=== PATIENT | female | born 2000 | race Caucasian/White ===

== ENCOUNTER 2024-11-23 17:59 | Emergency (ER) | payer BC, SELFPAY ==
[2024-11-23 18:17] VITALS: BP 168/111; PULSE 78; TEMP 36.7; O2SAT 100; BMI 54.9
--- NOTE | 2024-11-23 18:36 | ED_ITS ---
HPI HPI - General Adult General Stated complaint: EAR PAIN, COUGH, FEVER Time Seen by Provider: 11/23/24 18:03 Source: patient Mode of arrival: walk-in Limitations: no limitations History of Present Illness HPI narrative: The patient presented to us with almost 5 days history of upper respiratory tract infection symptoms of coughing and congestion, there was no shortness of breath, but over the last 3 days she started having some ear pain only in the left ear She also have some subjective fever at home Related Data Home Medications ?Medication ?Instructions ?Recorded ?Confirmed multivitamin (Daily Multi-Vitamin 1 tab PO DAILY 11/23/24 11/23/24 tablet) Previous Rx's ?Medication ?Instructions ?Recorded azithromycin 250 mg tablet See Rx Instructions PO .COMPLEX #6 11/23/24 (Zithromax Z-Bonifacio) tabs guaifenesin 600 mg tablet, 600 mg PO Q12H PRN congestion #14 11/23/24 extended release 12 hr (Mucinex) tabs Allergies Allergy/AdvReac Type Severity Reaction Status Date / Time No Known Drug Allergies Allergy Verified 11/23/24 18:26 Opioid HPI Opioid Management Most Recent Opioid Data: No Data to Display Review of Systems ROS Status of ROS 10 or more systems reviewed and unremark able except as noted in history and below [facility] Surgical History (Updated 11/23/24 @ 18:28 by Brionna Kathleen) Hx of tonsillectomy ?Z90.89 - Acquired absence of other organs (ICD-10) Social History Little interest or pleasure in doing things: not at all Feeling down, depressed, or hopeless: not at all Exam Narrative Exam Narrative: Nurses notes and vital signs reviewed and patient is not hypoxic. General: Well-appearing and in no apparent distress. Skin: Warm, dry, no pallor noted. No rash. Head: Normocephalic, atraumatic. Neck: Supple, non-tender. Eye: Pupils are equal, round and EOMI. No scleral icterus. Ears, Nose, Mouth, and Throat: The patient have a significant left ear tympanic membrane bulging with serous fluid behind it in the left side, right ear examination was benign, oral mucosa is moist, no posterior oropharynx erythema, uvula is mid-line Cardiovascular: Regular Rate and Rhythm without murmur, gallop or rub. Respiratory: No accessory muscle use or respiratory distress. Lungs are clear to auscultation, no wheezing, rales or rhonchi Chest Wall: no tenderness Back: No midline thoracic or lumbar vertebral tenderness. No CVA tenderness Musculoskeletal: normal ROM, no calf or popliteal tenderness, no lower extremity edema/swelling GI: Abdomen is soft, non-distended. Normal bowel sounds. No masses appreciated. No tenderness to palpation. No rebound, guarding, or rigidity noted. Neurological: A&O x4. No cranial nerve dysfunction observed. No truncal ataxia. Moves all extremities. Sensation intact. Psychiatric: Cooperative and interactive. Normal mood and affect. Constitutional Vital Signs, click to edit/add: Last Vital Signs Temp 98.1 F 11/23/24 18:17 Pulse 78 11/23/24 18:17 Resp 16 11/23/24 18:17 BP 168/111 H 11/23/24 18:17 Pulse Ox 100 11/23/24 18:17 O2 Del Method Room Air 11/23/24 18:17 Course Vital Signs Vital signs: Vital Signs Temperature 98.1 F 11/23/24 18:17 Pulse Rate 78 11/23/24 18:17 Respiratory Rate 16 11/23/24 18:17 Blood Pressure 168/111 H 11/23/24 18:17 Pulse Oximetry 100 11/23/24 18:17 Oxygen Delivery Method Room Air 11/23/24 18:17 Temperature 98.1 F 11/23/24 18:17 Pulse Rate 78 11/23/24 18:17 Respiratory Rate 16 11/23/24 18:17 Blood Pressure 168/111 H 11/23/24 18:17 Pulse Oximetry 100 11/23/24 18:17 Oxygen Delivery Method Room Air 11/23/24 18:17 Medical Decision Making [facility] Narrative Medical decision making narrative: The patient left ear pain mostly secondary to otitis media as per clinical exam Patient started azithromycin in addition to Mucinex The patient is to follow up with primary care physician in next 2-3 days or to return to the emergency department should any of the signs or symptoms worsen or new symptoms develop. The patient agrees with the following Diagnosis and Treatment plan and the patient will be discharged home. Discharge Plan Discharge Clinical Impression: Otitis media Patient Disposition: Home, Self-Care Time of Disposition Decision: 18:36 Condition: Good Prescriptions / Home Meds: New azithromycin [Zithromax Z-Bonifacio] 250 mg tablet See Rx Instructions .ROUTE .COMPLEX Qty: 6 0RF Rx Instructions: For 250 mg dose pack: take 500 mg today (day 1), then 250 mg for 4 days (days 2-5) guaifenesin [Mucinex] 600 mg tablet extended release 12hr 600 mg PO Q12H PRN (Reason: congestion) Qty: 14 0RF No Action multivitamin [Daily Multi-Vitamin] Tablet 1 tab PO DAILY Print Language: Yoruba Instructions: Ear Infection (ED) Referrals: MOIZ DIAZ [Primary Care Provider] - 1 week
== END 2024-11-23 19:24 | disposition home or self-care (01) ==
PROVIDERS: Emergency Provider Emergency Medicine; PCP Family Medicine
DX: H66.92 Otitis media, unspecified, left ear (principal)
CPT/HCPCS: 99283

== ENCOUNTER 2025-11-19 14:13 | Emergency (ER) | payer BC, SELFPAY ==
--- OUTSIDE RECORDS SUMMARY | 2025-11-17 07:49 | XMS_ITS | Continuity of Care Document ---
Author Organization [facility] Address [address] [place] [address] Phone Care Team Providers Care Neighborhood Aide Name Role Phone Case DDS, Rafaela Unavailable Unavailable Allergies, Adverse Reactions, Alerts Substance Reaction Status Criticality No Known Allergies Active No Inform ation Medications Medication Instructions Dosage Effective Dates (start - stop) Status Comments promethazine 25 mg tablet take 1 tablet by oral route every 4 - 6 hours as needed 25 MG - No Longer Active Prenate DHA 28 mg iron-1 mg-300 mg capsule take 1 capsule by oral route every day - No Longer Active may substitute per insurance Procedures Procedure Date Panoramic Film Bitewig-single Film Limited Oral Eval Oral Hygiene Instruction URINE TEST OFFICE/OUTPATIENT VISIT, EST OFFICE/OUTPATIENT VISIT, NEW URINE TEST URINALYSIS NONAUTO W/O SCOPE OFFICE/OUTPATIENT VISIT, EST Imm Admin Through 18 Yrs Of Age 013 HEP A VACC, PED/ADOL, 2 DOSE Imm Admin Through 18 Yrs Of Age 013 H PAPILLOMA VACC 3 DOSE IM OFFICE/OUTPATIENT VISIT, EST FLU VACCINE, 3 YRS & >, IM OFFICE/OUTPATIENT VISIT, EST H PAPILLOMA VACC 3 DOSE IM FLU VACCINE, 3 YRS & >, IM OFFICE/OUTPATIENT VISIT, EST OFFICE/OUTPATIENT VISIT, EST H PAPILLOMA VACC 3 DOSE IM HEP A VACC, PED/ADOL, 2 DOSE Menveo TDAP VACCINE >7 IM FLU VACCINE, 3 YRS & >, IM Advance Directives Directive Yes / No Effective Date File Name No Information Encounters Encounter Description Practice Location Reason(s) For Visit Diagnoses Date Provider Providers Copied on Encounter [facility], [address] [place] [address], [id number], [place] tel:[phone] Dental Clinic de (chief complaint) Body mass index [BMI] 50.0-59.9, adultEncounter for screening for dental disorders 5 Case DDS Rafaela. [address] [place] [address], [id number] , [place]. tel: [phone] OFFICE/OUTPAT IENT VISIT, [facility], [address] [place] [address], [id number], [place] tel:[phone] [facility] Test (chief complaint) Positive testEncounter for supervision of normal 1st , 1st trimester 201 9 Jignesh [facility] Chyna. [address] [place] [address], [id number] , [place]. tel:[phone] OFFICE/OUTPAT IENT VISIT, [facility], [address] [place] [address], [id number], [place] tel:[phone] [facility] No Information 0 3 Visci DO Aurelio. [address], [place], [id number] , [place]. tel:[phone] OFFICE/OUTPAT IENT VISIT, [facility], [address] [place] [address], [id number], [place] tel:[phone] [facility] Influenza Vaccine 2 Taiwo Delgado. [address], [place], [id number] , [place]. tel:[phone] OFFICE/OUTPAT IENT VISIT, EST [facility], [address], [place], [id number], [place] tel:[phone] [facility] Need for prophylactic vaccination and inoculation against other specified single bacterial diseaseNeed for prophylactic vaccination with combined diphtheria-tetanus- pertussis (DTP) (DTaP) vaccineNeed for prophylactic vaccination and inoculation against viralhepatitisNeed for prophylactic vaccination and inoculation, other viral diseases 2 Taiwo Delgado. [address] [place], [place], [id number] , [place]. tel:[phone] [facility], [address], [place], [id number], [place] tel:[phone] [facility] No Information 1 Taiwo Delgado. [address], [place], [id number] , [place]. tel: [phone] Family History Family Member Type Diagnosis Age At Onset No Information Immunizations Vaccine Date Status Comments HPV administered Source: New Imm unization Record Hep A (ped/adol, 2 dose) administered Heather rce: New Immunization Record Flu (split) (3 yrs or older) administered Source: New Immunization Record HPV administered Source: New Imm unization Record HPV administered Source: New Imm unization Record Hep A (ped/adol, 2 dose) administered Heather rce: New Immunization Record Tdap administered Source: New Imm unization Record MCV4 (11-55 yrs) administered Source: New Immunization Record Payers Payer name Insurance type Covered constitution party ID Bobby mancia(s) D [employer] [place] CI [id number] D [facility] Claims CI [id number] Social History Type Description Quantity Date Captured Comments Alcohol Use Details Unknown Caffeine Use Details Unknown Tobacco Use Status Current non-smoker Smoking Status Never smoker Non-Smoking Tobacco Use Details : No Details Available : No Details Available [id number] SexFemaleSexual OrientationStraight or heterosexualGender [id number] Vital Signs Date / Time: Height Weight BMI Pulse Rate Blood Pressure Temperature Respiratory Rate Body Surface Area Head Circumference Head Circ. Percentile Wt./Roman. Percentile BMI percentile Pulse Ox Inhaled Ox 12:56 PM 66.00 in 145.603 kg (321.00 lbs) 51.8 1 kg/m eter (2) 95 /min 157/94 mm[Hg] 98.20 F 2.60 meter(2) Chief Complaint And Reason For Visit From encounter dated '11/17/2025 12:49'. de (chief complaint) Reason For Referral Reason For Referral No Information Plan Of Treatment Date Type Action Status Goal Tdap due Goal Unhealthy drug use screening . Due on due Goal HPV. Due on due Goal Depression screening. Due on due Goal PRAPARE ASSESSMENT. Due on D due Goal Influenza Vaccine. Due on due Goal RLP. Due on due Goal Tdap Vaccine. Due on 2024 due Goal PAP. Due on due Goal Hepatitis C screening. Due o n due Goal Dietary management education , guidance, and counseling completed Goal Tdap due Goal RLP. Due on due Goal Depression screening. Due on due Goal Influenza Vaccine. Due on No due Goal Influenza Vaccine. Due on No due Goal TD Vaccine. Due on 12 due Goal HPV (3rd). Due on 3 due Goal HPV (2nd). Due on 2 due Goal HPV (1st). Due on 2 due History Of Present Illness Encounter Date Complaint History Of Prese nt Illness de Test Functional Status Date Functional Assessmen t No Information Instructions Date Instruction Additional Infor mation Dietary management e ducation, guidance, and counseling Related to Body mass index [BMI] 50.0-59.9, adult Assessments Type Assessment Date assessment Body mass index [BMI] 50.0-59.9, adult Patient Care Teams Name Effective Dates (start - stop) Status Members No Information
[2025-11-19 14:16] VITALS: BP 170/104; PULSE 91; TEMP 36.9; O2SAT 98; BMI 56.6
--- OUTSIDE RECORDS SUMMARY | 2025-11-19 14:41 | XMS_ITS | CCD ---
Author Organization [facility] Inform ion Partnership [facility] Care Team Providers Care Ceramic Coater Name Role Phone DO Moiz Diaz Primary Care Provider MD Lelo Patrick Attending Provider MARKER ., DR BERNSTEIN Attending Unavailable MARKER ., DR BERNSTEIN Consulting Unavailable MARKER ., DR BERNSTEIN Admitting Unavailable EMILY, DR ROCKWELL Primary Care Unavailable MOIZ DIAZ Primary Care Physician [phone] Kelly HAN Admitting Unavailable Maurilio BRAND Attending Unavailable Moiz Diaz Attending Unavailable Moiz Diaz Primary Care Unavailable Moiz Diaz Admitting Unavailable Lelo Patrick Admitting Unavailable Moiz Diaz Primary Care Unavailable Lelo Patrick Attending Unavailable Unavailable Unavailable Unavailable Medications Current Medications MedicationDrug Class(es)DatesSig (Normalized)Sig (Original)docusate sodium 50 mg oral capsule (2 sources)Start: 09-94-3826nvxv 50 mg by mouth once dailyDocusate Sodium Active 50 MG Oral Daily November 11, 2019 9:38pmferrous sulfate 325 mg oral tablet (2 sources)Start: 38-74-5762inpc 325 mg by mouth once dailyFerrous Sulfate Active 325 MG Oral Daily November 11, 2019 9:38pmibuprofen 800 mg oral tablet (2 sources)Nonsteroidal Anti-inflammatory DrugStart: 23-53-0395efrl 800 mg by mouth every six hoursIbuprofen Active 800 MG Oral Q6H November 11, 2019 9:38pmMultivitamin preparation (1 source)Start: 98-32-4459iyah 1 tablet by mouth once dailymultivitamin 1 tab, Oral, Daily, Prophylaxis Start Date: 04/05/23 Status: OrderedtraMADol hydrochloride 50 mg oral tablet (2 sources)Opioid AgonistStart: 76-27-0722Qauykqys Active 50 MG Oral every 6 to 8 hours 12 3 November 11, 2019 9:38pm Completed/Discontinued Medications MedicationDrug Class(es)DatesSig (Normalized)Sig (Original) Control (1 source)Start: 03-28-2019 End: 30-86-0644likv 1 tablet by mouth once dailyBirth Control Discontinued 1 TAB PO Daily 2019 11:00pm November 13, 2019 11:10ammetoprolol 1 mg/mL Inj (1 source)Start: 04-05-2023 End: 52-70-8901bmnesu 2.5 mg intravenously oncemetoprolol 1 mg/mL Inj 2.5 mg = 2.5 mL, Injection, IV Push, Once, Stop date 04/05/23 1:14:00 EDT, STAT, Start date 04/05/23 1:14:00 EDT, 04/05/23 1:14:00 EDT Start Date: 04/05/23 Stop Date: 04/05/23 Status: Completed Problems Problem ClassificationProblemDateDocumented DateEpisodic/ChronicAbdominal pain (1 source)Abdominal pain; Translations: [Unspecified abdominal pain]Onset: 63-39-2287ZycwikvtYpqlf and unspecified renal failure (1 source)Acute renal failure syndrome; Translations: [Acute kidney failure, unspecified]Onset: 12-91-5419QzxoadzwVgabxfz dysrhythmias (2 sources)Tachycardia, unspecified; Translations: [Tachyarrhythmia ]Onset: 81-30-4405LbtyracdBtlzv of unknown origin (1 source)Fever; Translations: [Fever, unspecified]Onset: 86-88-7552Lpvjqdyo Fluid and electrolyte disorders (1 source)Dehydration; Translations: [Dehydration]Onset: 53-15-1569Clhpvrqb Nausea and vomiting (4 sources)Nausea with vomiting, unspecified; Translations: [NAUSEA WITH VOMITING UNSPECIFIED]Onset: 97-63-3316CebrifppDvcha aftercare (1 source)Long-term current use of drug therapy; Translations: [Other longwall shearer operator (current) drug therapy]Onset: 42-15-8389GnvwtlqkFsewt gastrointestinal disorders (1 source)Diarrhea, unspecified; Translations: [DIARRHEA UNSPECIFIED]Onset: 80-63-9844RfnoskwjFhvjw gastrointestinal disorders (1 source)Diarrhea; Translations: [Diarrhea, unspecified]Onset: 04-05-2023 EpisodicOther nutritional; endocrine; and metabolic disorders (1 source)Obesity, unspecified; Translations: [OBESITY UNSPECIFIED]Onset: 50-55-7137EtxrpgaZnnrb nutritional; endocrine; and metabolic disorders (1 source)Body mass index (BMI) 50.0-59.9, adult; Translations: [BODY MASS INDEX BMI 50.0-59.9 ADULT]Onset: 32-12-8579GjfmgenTfmbe nutritional; endocrine; and metabolic disorders (1 source)Obesity; Translations: [Obesity, unspecified]Onset: 65-63-8801Kdyqhdd Other and delivery including normal (2 sources); Translations: [Encounter for supervision of normal , unspecified, unspecified trimester]42-40-4726IdxjotwhFhjlu upper respiratory infections (1 source)Streptococcal pharyngitis; Translations: [STREPTOCOCCAL PHARYNGITIS] Onset: 98-28-1963BihgvarkTrdcwuxq codes; unclassified (2 sources)Gestation period, 39 weeks; Translations: [39 weeks gestation of ]56-48-3215DjclctfwIwwbderk codes; unclassified (1 source)H/O: section; Translations: [Status post primary low transverse section]EpisodicUnclassified (1 source)CONTACT W/AND (SUSP) EXPOS COVID-19; Translations: [CONTACT W/AND (SUSP) EXPOS COVID-19]Onset: 38-62-2442Gvqqnuczvgvl (1 source)Encounter for screening for cardiovascular disorders; Translations: [Encounter for screening for cardiovascular disorders]Onset: 04-30-2023 Unclassified (1 source)Other specified disorders of adrenal gland; Translations: [Other specified disorders of adrenal gland]Onset: 10-09-2022 Results Test NameValueInterpretationReference RangeFacilityComplete Blood Count Auto Diffon 42-38-3181Dwndkkxnd (Bld) [#/Vol]0.1 10*3/uLNormal0.0-0.2FAultman Orrville HospitalComment on above:Order Comment: Reason for Exam Screening for cardiovascular conditionResult Comment: PERFORMED BY: [place] [address] PATHOLOGIST BUS DRIVER SUPERVISOR [employer] JOSEPH M.D.Performed By: #### TSH3, LIPID, CBC, CMP #### [facility] [address] [place] [address] USABasophils/100 WBC (Bld)0.7 %Normal.[facility] HospitalComment on above:Order Comment: Reason for Exam Screening for cardiovascular conditionPerformed By: #### TSH3, LIPID, CBC, CMP #### [facility] [address] [place] [address] USAEosinophils (Bld) [#/Vol]0.1 10*3/uLNormal0.0-0.45 [facility] HospitalComment on above:Order Comment: Reason for Exam Screening for cardiovascular conditionPerformed By: #### TSH3, LIPID, CBC, CMP #### [facility] [address] [place] [address] USAEosinophils/100 WBC (Bld)1.5 %Normal.[facility] HospitalComment on above:Order Comment: Reason for Exam Screening for cardiovascular conditionPerformed By: #### TSH3, LIPID, CBC, CMP #### [place] [address] USAErythrocyte distribution width (RBC) [Ratio]13.9 %Normal 11.9-15.3FAultman Orrville HospitalComment on above:Order Comment: Reason for Exam Screening for cardiovascular conditionPerformed By: #### TSH3, LIPID, CBC, CMP #### [facility] [address] [place] [address] USAHematocrit (Bld) [Volume fraction]40.1 %Gcmhtz50.0-46.4 [facility] HospitalComment on above:Order Comment: Reason for Exam Screening for cardiovascular conditionPerformed By: #### TSH3, LIPID, CBC, CMP #### [place] [address] USAHemoglobin (Bld) [Mass/Vol]13.8 g/qGEjxthm65.8-15.4 [facility] HospitalComment on above:Order Comment: Reason for Exam Screening for cardiovascular conditionPerformed By: #### TSH3, LIPID, CBC, CMP #### [facility] [address] [place] [address] USALymphocytes (Bld) [#/Vol]2.3 10*3/uLNormal1.00-4.8 [facility] HospitalCommclaren [place] on above:Order Comment: Reason for Exam Screening for cardiovascular conditionPerformed By: #### TSH3, LIPID, CBC, CMP #### [facility] [address] [place] [address] USALymphocytes/100 WBC (Bld)26.9 %Normal.[facility] HospitalCommclaren [facility] [place] on above:Order Comment: Reason for Exam Screening for cardiovascular conditionPerformed By: #### TSH3, LIPID, CBC, CMP #### [facility] [address] [place] [address] USAMCH (RBC) [Entitic mass]28.3 izBmnwpf84.7-34.3FAultman Orrville HospitalComment on above:Order Comment: Reason for Exam Screening for cardiovascular conditionPerformed By: #### TSH3, LIPID, CBC, CMP #### [facility] [address] [place] [address] USAMCV (RBC) [Entitic vol]82.4 lSBvbjyr58-236QwaefkvobFort Hamilton HospitalComment on above:Order Comment: Reason for Exam Screening for cardiovascular conditionPerformed By: #### TSH3, LIPID, CBC, CMP #### [facility] [address] [place] [address] USAMean Corpuscular HGB Conc34.3 g/sVNxxecb08.0-35.0[facility] HospitalComment on above:Order Comment: Reason for Exam Screening for cardiovascular conditionPerformed By: #### TSH3, LIPID, CBC, CMP #### [facility] [address] [place] [address] USAMonocytes (Bld) [#/Vol]0.4 10*3/uLNormal0.0-0.8[facility] HospitalComment on above:Order Comment: Reason for Exam Screening for cardiovascular conditionPerformed By: #### TSH3, LIPID, CBC, CMP #### [facility] [address] [place] [address] USAMonocytes/100 WBC (Bld)5.0 %Normal.[facility] HospitalCommclaren [facility] [place] on above:Order Comment: Reason for Exam Screening for cardiovascular conditionPerformed By: #### TSH3, LIPID, CBC, CMP #### [facility] [address] [place] [address] USANeutrophils (Bld) [#/Vol]5.7 10*3/uLNormal1.8-7.7FAultman Orrville HospitalComment on above:Order Comment: Reason for Exam Screening for cardiovascular conditionPerformed By: #### TSH3, LIPID, CBC, CMP #### [facility] [address] [place] [address] USANeutrophils/100 WBC (Bld)65.9 %Normal.[facility] HospitalCommclaren [facility] [place] on above:Order Comment: Reason for Exam Screening for cardiovascular conditionPerformed By: #### TSH3, LIPID, CBC, CMP #### [facility] [address] [place] [address] USANRBC%0.0 /100{WBC}Normal0-0.5FAultman Orrville HospitalCommclaren northern [place] on above:Order Comment: Reason for Exam Screening for cardiovascular conditionPerformed By: #### TSH3, LIPID, CBC, CMP #### [facility] [address] [place] [address] USAPlatelet mean volume (Bld) [Entitic vol]7.8 fLNormal 6.3-10.7FAultman Orrville HospitalComment on above:Order Comment: Reason for Exam Screening for cardiovascular conditionPerformed By: #### TSH3, LIPID, CBC, CMP #### [facility] [address] [place] [address] USAPlatelets (Bld) [#/Vol]322 10*3/xACpmlkw932-484CgauokvopFort Hamilton HospitalComment on above:Order Comment: Reason for Exam Screening for cardiovascular conditionPerformed By: #### TSH3, LIPID, CBC, CMP #### [facility] [address] [place] [address] USARBC (Bld) [#/Vol]4.87 10*6/uLNormal3.60-5.00[facility] HospitalComment on above:Order Comment: Reason for Exam Screening for cardiovascular conditionPerformed By: #### TSH3, LIPID, CBC, CMP #### [facility] [address] [place] [address] USAWBC (Bld) [#/Vol]8.7 10*3/uLNormal3.8-11.6FAultman Orrville HospitalComment on above:Order Comment: Reason for Exam Screening for cardiovascular conditionPerformed By: #### TSH3, LIPID, CBC, CMP #### [place] [address] USAComprehensive Metabolic Panelon 40-98-7482Vssmsnh [Mass/Vol]4.6 g/dLNormal3.5-5.7FAultman Orrville HospitalComment on above:Order Comment: Reason for Exam Screening for cardiovascular condition Performed By: #### TSH3, LIPID, CBC, CMP #### [facility] [address] [place] [address] USAAlbumin/Globulin [Mass ratio]2.1 {ratio}[facility] CenterCommclaren [facility] [place] on above:Order Comment: Reason for Exam Screening for cardiovascular conditionPerformed By: #### TSH3, LIPID, CBC, CMP #### [facility] [address] [place] [id number] USAALP [Catalytic activity/Vol]69 U/UKnkpju65-617ZtkgyatneFort Hamilton HospitalComment on above:Order Comment: Reason for Exam Screening for cardiovascular conditionPerformed By: #### TSH3, LIPID, CBC, CMP #### [facility] [address] [place] [address] USAALT [Catalytic activity/Vol]15 U/LNormal7-52[facility] HospitalComment on above:Order Comment: Reason for Exam Screening for cardiovascular conditionPerformed By: #### TSH3, LIPID, CBC, CMP #### [place] [address] USAAnion gap [Moles/Vol]12.9 mmol/LNormal6.0-15.0[facility] HospitalComment on above:Order Comment: Reason for Exam Screening for cardiovascular conditionPerformed By: #### TSH3, LIPID, CBC, CMP #### [facility] [address] [place] [address] USAAST [Catalytic activity/Vol]13 U/BMjgaxu25-40UkkoqcvhhFort Hamilton HospitalComment on above:Order Comment: Reason for Exam Screening for cardiovascular conditionPerformed By: #### TSH3, LIPID, CBC, CMP #### [facility] [address] [place] [address] USABilirubin [Mass/Vol]0.7 mg/dLNormal0.3-1.0[facility] HospitalComment on above:Order Comment: Reason for Exam Screening for cardiovascular conditionPerformed By: #### TSH3, LIPID, CBC, CMP #### [facility] [address] [place] [address] USACalcium [Mass/Vol]9.8 mg/dLNormal8.6-10.3FAultman Orrville HospitalComment on above:Order Comment: Reason for Exam Screening for cardiovascular conditionPerformed By: #### TSH3, LIPID, CBC, CMP #### [facility] [address] [place] [address] USAChloride [Moles/Vol]106 mmol/STiazgm34-378YgwfuvscbFort Hamilton HospitalComment on above:Order Comment: Reason for Exam Screening for cardiovascular conditionPerformed By: #### TSH3, LIPID, CBC, CMP #### [facility] [address] [place] [address] USACO2 [Moles/Vol]25.2 mmol/RBrfnoj04.0-31.0[facility] HospitalComment on above:Order Comment: Reason for Exam Screening for cardiovascular conditionPerformed By: #### TSH3, LIPID, CBC, CMP #### [facility] [address] [place] [address] USACreatinine [Mass/Vol]1.03 mg/dLNormal0.60-1.20[facility] HospitalComment on above:Order Comment: Reason for Exam Screening for cardiovascular conditionPerformed By: #### TSH3, LIPID, CBC, CMP #### [facility] [address] [place] [address] USAGFR/1.73 sq M.predicted MDRD (S/P/Bld) [Vol rate/Area] mL/min/{1.73_m2}NormalFort Hamilton HospitalComment on above:Order Comment: Reason for Exam Screening for cardiovascular conditionPerformed By: #### TSH3, LIPID, CBC, CMP #### [facility] [address] [place] [address] USAGlobulin (S) [Mass/Vol]2.2 g/dLNoCrystal Clinic Orthopedic CenterComment on above:Order Comment: Reason for Exam Screening for cardiovascular conditionPerformed By: #### TSH3, LIPID, CBC, CMP #### [facility] [address] [place] [address] USAGlucose [Mass/Vol]76 mg/iWNfnbor38-207QwvyvcuwgFort Hamilton HospitalComment on above:Order Comment: Reason for Exam Screening for cardiovascular conditionResult Comment: Random Glucose Reference Range is dependent on time and content of last meal. Glucose of more than 200 mg/dL in a nonstressed, ambulatory subject supports the diagnosis of Diabetes Mellitus. ADA recommended reference rangePerformed By: #### TSH3, LIPID, CBC, CMP #### [facility] [address] [place] [address] USAPotassium [Moles/Vol]4.1 mmol/LNormal3.5-5.1FAultman Orrville HospitalComment on above:Order Comment: Reason for Exam Screening for cardiovascular conditionPerformed By: #### TSH3, LIPID, CBC, CMP #### [facility] [address] [place] [address] USAProtein [Mass/Vol]6.8 g/dLNormal6.4-8.9[facility] HospitalComment on above:Order Comment: Reason for Exam Screening for cardiovascular conditionPerformed By: #### TSH3, LIPID, CBC, CMP #### [place] [id number] USASodium [Moles/Vol]140 mmol/HUaqgpp871-874HejmjvijvFort Hamilton HospitalComment on above:Order Comment: Reason for Exam Screening for cardiovascular conditionPerformed By: #### TSH3, LIPID, CBC, CMP #### [facility] [address] [place] [address] USAUrea nitrogen [Mass/Vol]11 mg/dLNormal7-25[facility] HospitalComment on above:Order Comment: Reason for Exam Screening for cardiovascular conditionPerformed By: #### TSH3, LIPID, CBC, CMP #### [facility] [address] [place] [address] USALipid Panelon 59-90-5065Gicpdpixxyt [Mass/Vol]195 mg/dL Silgdv317-793NfyxunoapFort Hamilton HospitalComment on above:Order Comment: Reason for Exam Screening for cardiovascular conditionResult Comment: Chol less than 200 mg/dl low risk Chol 201-239 mg/dl borderline risk Chol 240 mg/dl and greater high riskPerformed By: #### TSH3, LIPID, CBC, CMP #### [facility] [address] [place] [address] USACholesterol in HDL [Mass/Vol]36 mg/rFMrqtgi13-50KskzyrpcbFort Hamilton HospitalComment on above:Order Comment: Reason for Exam Screening for cardiovascular conditionResult Comment: HDL CHOL ATP-III CLASSIFICATION Cardiovascular Risk HDL > or equal to 60 mg/dL LOW HDL < 40 mg/dL HIGHPerformed By: #### TSH3, LIPID, CBC, CMP #### [facility] [address] [place] [address] USACholesterol.total/Cholesterol in HDL [Mass ratio]5.4 {ratio}Normal<5.0[facility] HospitalComment on above:Order Comment: Reason for Exam Screening for cardiovascular conditionPerformed By: #### TSH3, LIPID, CBC, CMP #### [facility] [address] [place] [address] USALDL Cholesterol,Xuxnputzrs539 mg/dLHigh0-100[facility] HospitalComment on above:Order Comment: Reason for Exam Screening for cardiovascular conditionResult Comment: LDL ATP III CLASSIFICATION LDL less than 100 mg/dL Optimal LDL 100-129 mg/dL Near or above optimal LDL 130-159 mg/dL Borderline high LDL 160-189 mg/dL High LDL greater than 189 mg/dL Very highPerformed By: #### TSH3, LIPID, CBC, CMP #### [facility] [address] [place] [address] USATriglyceride w/Qqzmvq199 mg/dLHigh0-149[facility] HospitalComment on above:Order Comment: Reason for Exam Screening for cardiovascular conditionResult Comment: TRIG ATP III CLASSIFICATION TRIG less than 150 mg/dL Normal TRIG 150-199 mg/dL Borderline high TRIG 200-500 mg/dL High TRIG greater than 500 mg/dL Very high Standard traceable to the Center for Disease Conrtrol and Prevention (CDC) test method.Performed By: #### TSH3, LIPID, CBC, CMP #### [facility] [address] [place] [id number] USAVLDL FWUWGGJEKMQ85 mg/dLNormalFort Hamilton HospitalComment on above:Order Comment: Reason for Exam Screening for cardiovascular conditionPerformed By: #### TSH3, LIPID, CBC, CMP #### [facility] [address] [place] [id number] USAThyroid Stimulating Hormoneon 19-46-7870VKU Qn2.37 m[IU]/L Normal0.45-5.33[facility] HospitalComment on above:Order Comment: Reason for Exam Screening for cardiovascular conditionResult Comment: PERFORMED BY: [place] [address] PATHOLOGIST BUS DRIVER SUPERVISOR [employer] JOSEPH M.D.Performed By: #### TSH3, LIPID, CBC, CMP #### [facility] [address] [place] [id number] USABMPon 33-99-6998Mazmx gap [Moles/Vol]8 mmol/LNormal6-16 [facility] Medical CenterComment on above:Performed By: #### [id number], [id number] ####[facility] [address] [place] [address] Calcium [Mass/Vol]8.2 mg/dLLow8.9-11.1FHocking Valley Community HospitalComment on above:Performed By: #### [id number], [id number] ####[facility] [address] [place], [place] [address]Vdhgfnuw [Moles/Vol]110 mmol/LNormal 101-111[facility]S Medical CenterComment on above:Performed By: #### [id number], [id number] ####[facility] [address] [place], [place] [address]BR8 [Moles/Vol]25 mmol/ODcietl14-89CckgwyBarney Children'S Medical CenterComment on above:Performed By: #### [id number], [id number] ####[address] [address]Rbihsygose [Mass/Vol]1.1 mg/dLNormal 0.5-1.3FHocking Valley Community HospitalComment on above:Performed By: #### [id number], [id number] ####[facility] [address] [place] [address]Poehkin [Mass/Vol]101 mg/xIPdmhlj04-395SwvfmwBarney Children'S Medical CenterComment on above:Result Comment: If this glucose result represents a fasting glucose, interpretation should refer tothe following reference range: 55-99 mg/dL Performed By: #### [id number], [id number] ####[address] [address]Sujxurbvi [Moles/Vol]3.7 mmol/LNormal 3.5-5.3FHocking Valley Community HospitalComment on above:Performed By: #### [id number], [id number] ####[facility] [address] [place], [place] [address]Tugdue [Moles/Vol]139 mmol/BXnultg587-444WqtxgoBarney Children'S Medical CenterComment on above:Performed By: #### [id number], [id number] ####[facility] [address] [place] [address]Ijee nitrogen [Mass/Vol]13 mg/dL Normal5-21[facility]S Medical CenterComment on above:Performed By: #### [id number], [id number] ####[facility] [address] [place], [place] [address]Edxh nitrogen/Creatinine [Mass ratio]12 No KyndoJrumrk44-00 [facility] Medical CenterComment on above:Performed By: #### [id number], [id number] ####[address] [address]M. diff by PCRon 94-98-3703Fdwgyidtacw difficile by PCRNegativeNormalNegativeBarney Children'S Medical CenterComment on above:Order Comment: Order added by Discern Expert.Result Comment: This test result should be correlated with clinical presentations and medical history by a healthcare provider to determine its clinical significance.Performed By: #### [id number], [id number], [id number] ####[address] [address]TBtwt PCRon 45-91-3919Uucyd Specimen AcceptableAcceptableNoCincinnati Shriners HospitalComment on above:Performed By: #### [id number], [id number], [id number] ####[address] [address]Xcpns CancelledNo, PCR to followPremier Health Upper Valley Medical CenterComment on above: Performed By: #### [id number], [id number], [id number] ####[address] [address]QBOKFYBPATajsvpx By: SYSTEM SYSTEM on 25-43-3752Mjqym gap [Moles/Vol]8 mmol/LNormal6 - 16 mEq/LFTMC Remisol Calcium [Mass/Vol]8.2 mg/dLLow8.9 - 11.1 mg/dLFTMC RemisolChloride [Moles/Vol] 110 mmol/SLkxjvk285 - 111 mmol/LFTMC RemisolCO2 [Moles/Vol]25 mmol/HAmbnoa00 - 31 mmol/LFTMC RemisolCreatinine [Mass/Vol]1.1 mg/dLNormal0.5 - 1.3 mg/dLDRUMRIGHT REGIONAL [facility] [place] RemisolGFR/1.73 sq M.predicted among non-blacks MDRD (S/P/Bld) [Vol rate/Area]72 mL/min/1.73 u8Mwpuot>=59mL/min/1.73 m2DR[facility] Chem SGlucose [Mass/Vol]101 mg/dL Pvchnk87 - 199 mg/dLDRUMRIGHT REGIONAL HOSPITAL [facility] [place] RemisolPotassium [Moles/Vol]3.7 mmol/LNormal3.5 - 5.3 mmol/LFTMC RemisolSodium [Moles/Vol]139 mmol/XOdykou394 - 145 mmol/LFTMC Remisol Urea nitrogen [Mass/Vol]13 mg/dLNormal5 - 21 mg/dLDRUMRIGHT REGIONAL [facility]OS[facility] [place] RemisolUrea nitrogen/Creatinine [Mass ratio]12 mg/hdYcsalv69 - 20[facility] RemisolDischarge Instructionson 26-55-6041Jkmgnbalu Instructions [id number]:127NormalAtrium Health Union [facility] InstituteDischarge Note-Nursingon 06-36-3692Exmuwkqxs Note-Nursing JADE MORRIS DOB:2000 Visit Date:04/04/2023 Inpatient Discharge Instructions Your Care Team Admitting Physician - Patric BADILLO DO Reason for Your Visit admitted prior to 0700 on this day - prior to this RN shift Diarrhea, short of breath, palpitations Your Diagnosis RADHA (acute kidney injury) Acute diarrhea Dehydration Sinus tachycardia Abdominal pain Fever Obese On deep vein thrombosis (DVT) prophylaxis Abdominal pain Diarrhea Nausea and vomiting Palpitations Shortness of breath Tachycardia Tests Performed Automated Diff Beta hCG Qual Blood Gas Marcos BMP BMP CBC w/ Auto Diff Clostridium difficile by PCR Clostridium Difficile PCR COVID Rapid Antigen ([facility]) Drug Screen Urine eGFR Enteric Panel by PCR Hepatic Function Panel Lactic Acid Lipase Level Magnesium Level Troponin 0 Hr. TSH With T4fr Reflex UA With Cult Reflex CT Abdomen/Pelvis w/ Contrast XR Chest Single View This Is Your Medications List multivitamin [Image Removed: STOP]Stop taking these medications ibuprofen Procedure History section (11/11/2019), Tonsillectomy and adenoidectomy. Discharge Vitals Temperature (Oral) 36.6 ?C Heart Rate (Monitored) 86 Respiratory Rate 18 Blood Pressure 118/80 Weight 142.9 kg What to do next Instructions From Your Doctor Event Name Event Result Discharge Activity Ambulate as tolerated Discharge Diet(s) Calorie Controlled- 1800 Calorie Diet Pending Diagnostic Test Results None New Follow Up Appointments after Discharge Follow Up with MOIZ DIAZ When: Comments: The office will contact you with an appointment. Thank you! Where: [address] [place], [place] [id number] [facility] (1) Medications What How Much When Instructions Next Dose Unchanged multivitamin 1 tab By Mouth Every day TAKE NEXT DOSE ON 04/07/23 AT 0900 What How Much When Comments Stop Taking ibuprofen 400 Milligram By Mouth Every 6 hours as needed for as needed for pain Test Results CBC BMP WBC: 5.1 E9/L (04/05/23 00:07:00) Glucose Lvl: 101 mg/dL (04/06/23 04:55:00) RBC: 5 E12/L (04/05/23 00:07:00) BUN: 13 mg/dL (04/06/23 04:55:00) HGB: 14 gm/dL (04/05/23 00:07:00) Creatinine: 1.1 mg/dL (04/06/23 04:55:00) Hct: 41 % (04/05/23 00:07:00) BUN/Creat Ratio: 12 (04/06/23 04:55:00) MCV: 81.6 fL (04/05/23 00:07:00) Sodium Lvl: 139 mmol/L (04/06/23 04:55:00) MCH: 27.8 pg (04/05/23 00:07:00) Potassium Lvl: 3.7 mmol/L (04/06/23 04:55:00) MCHC: 34.1 gm/dL (04/05/23 00:07:00) Chloride: 110 mmol/L (04/06/23 04:55:00) RDW: 14.3 % High (04/05/23 00:07:00) CO2: 25 mmol/L (04/06/23 04:55:00) Platelet: 235 E9/L (04/05/23 00:07:00) AGAP: 8 mEq/L (04/06/23 04:55:00) MPV: 7 fL (04/05/23 00:07:00) Calcium Lvl: 8.2 mg/dL Low (04/06/23 04:55:00) Allergies No Known Allergies Education Materials Diarrhea, Adult Diarrhea is frequent loose and watery bowel movements. Diarrhea can make you feel weak and cause you to become dehydrated. Dehydration can make you tired and thirsty, cause you to have a dry mouth, and decrease how often you urinate. Diarrhea typically lasts 2?3 days. However, it can last longer if it is a sign of something more serious. It is important to treat your diarrhea as told by your health care provider. Follow these instructions at home: Eating and drinking Follow these recommendations as told by your health care provider: ? Take an oral rehydration solution (ORS). This is an wgto-hzh-motdtyz medicine that helps return your body to its normal balance of nutrients and water. It is found at pharmacies and retail stores. ? Drink plenty of fluids, such as water, ice chips, diluted fruit juice, and low- calorie sports drinks. You can drink milk also, if desired. ? Avoid drinking fluids that contain a lot of sugar or caffeine, such as energy drinks, sports drinks, and soda. ? Eat bland, dlqn-jn-lkonyt foods in small amounts as you are able. These foods include bananas, applesauce, rice, lean meats, toast, and crackers. ? Avoid alcohol. ? Avoid spicy or fatty foods. Medicines ? Take ohrj-bzm-azxuxku and prescription medicines only as told by your health care provider. ? If you were prescribed an antibiotic medicine, take it as told by your health care provider. Do notstop using the antibiotic even if you start to feel better. General instructions ? Wash your hands often using soap and water. If soap and water are not available, use a hand watch and clock repair clerk. Others in the household should wash their hands as well. Hands should be washed: ? After using the toilet or changing a diaper. ? Before preparing, cooking, or serving food. ? While caring for a sick person or while visiting someone in a hospital. ? Drink enough fluid to keep your urine pale yellow. ? Rest at ho (more content not included)...[facility] Enteric Panel by PCRon 04-06-2023. coli+jejuni+upsaliensis DNA TRAM+non-probe Ql (Stl)Not detectedNoCincinnati Shriners HospitalComment on above:Result Comment: Testing was performed utilizing reverse national account executive (RT), polymerase chain reaction (PCR), and array hybridization to detect specific gastrointestinal microbial nucleic acid gene sequences associated with the following pathogenic bacteria and viruses:Campylobacter Group (composed of C. coli, C. jejuni, and C. jacques), Salmonella species, Shigella species (including S. dysenteriae,S. boydii, S. sonnei and S. flexneri), Vibrio Group (composed of V. cholera and V. parahaemolyticus), Yersinia enterocolitica, Norovirus GI/GII, and Rotavirus A. In addition, EPdetects Shiga toxin 1 gene and Shiga toxin 2 gene virulence markers. Shiga toxin producing E. coli (STEC) typically harborone or both genes that encode for Shiga toxins 1 and 2. Campylobacter group, Salmonella species, Shigella species, Vibrio group, Rotavirus A, Shiga Toxin 1, Shiga Toxin 2, Norovirus GI/GII, and Yersinia enterocolitica were tested by Verigene nulcleic acidtest.Performed By: #### [id number], [id number], [id number] ####[address] [place], [place] [address]N. coli stx1+stx2 genes TRAM+non-probe Ql (Stl) NegativeNoCincinnati Shriners HospitalComment on above:Performed By: #### [id number], [id number], [id number] ####[address] [place], [place] [address]Njxyome Panel Intrl QCPassNoCincinnati Shriners HospitalComment on above:Result Comment: Testing was performed utilizing reverse national account executive (RT), polymerase chain reaction (PCR), and array hybridization to detect specific gastrointestinal microbial nucleic acid gene sequences associated with the following pathogenic bacteria and viruses:Campylobacter Group (composed of C. coli, C. jejuni, and C. jacques), Salmonella species, Shigella species (including S. dysenteriae,S. boydii, S. sonnei and S. flexneri), Vibrio Group (composed of V. cholera and V. parahaemolyticus), Yersinia enterocolitica, Norovirus GI/GII, and Rotavirus A. In addition, EPdetects Shiga toxin 1 gene and Shiga toxin 2 gene virulence markers. Shiga toxin producing E. coli (STEC) typically harborone or both genes that encode for Shiga toxins 1 and 2.Performed By: #### [id number], [id number], [id number] ####[address] [address]Xtstwiwpc genogroup I+II RNA TRAM+non-probe Ql (Stl)Not detectedNoCincinnati Shriners HospitalComment on above:Performed By: #### [id number], [id number], [id number] ####[address] [address]Dgewficcv A RNA TRAM+non-probe Ql (Stl)Not detectedNoCincinnati Shriners HospitalComment on above:Performed By: #### [id number], [id number], [id number] ####[address] [address]Q. enterica+bongori DNA TRAM+non-probe Ql (Stl)Not detectedNoCincinnati Shriners HospitalComment on above:Result Comment: This test result should be correlated with clinical presentations and medical history by a healthcare provider to determine its clinical significance.Performed By: #### [id number], [id number], [id number] ####[address] [address]Xjyifqvp species+EIEC invasion plasmid antigen H ipaH gene TRAM+non-probe Ql (Stl)Not detectedNoCincinnati Shriners HospitalComment on above:Performed By: #### [id number], [id number], [id number] ####[address] [address]A. cholerae+parahaemolyticus+vulnificus DNA TRAM+non-probe Ql (Stl)Not detected [facility] CenterComment on above:Performed By: #### [id number], [id number], [id number] ####[facility] [address] [place], [place] [address]K. enterocolitica DNA TRAM+non-probe Ql (Stl)Not detected [facility] CenterComment on above:Performed By: #### [id number], [id number], [id number] ####[facility] [address] [place], [place] [address]LiyBzdi Education Videoon 03-11-2242BecClfg Education Video Yes Patient Diarrhea: Here's HelpNormalBarney Children'S Medical CenterInpatient Clinical Summary on [id number] Clinical Summary [address] [address] Clinical Summary Person Information: Name: JADE MORRIS Age: 23 Years : 2000 Sex: Female PCP: MOIZ DIAZ DO Marital Status: Single Race: White Ethnicity: Non- or Language: Malay Visit Id: Visit Reason: Tachycardia; Diarrhea; Nausea and vomiting; Abdominal pain; Palpitations; Shortness of breath; ACUTE DIARRHEA, DEHYDRATION & SINUS TACH Speciality: Acuity: Enc Type: Observation Med Service: Medical Arrival: 04/04/2023 23:51:59 Discharge: Dispo Type: Admitted as IP to this Hosp Address: [address] [place] [address] DR FABIO Weber [facility] [id number] Provider Notes: Diagnosis: 1:RADHA (acute kidney injury); 2:Acute diarrhea; 3:Dehydration; 4:Sinus tachycardia; 5:Abdominal pain; 6:Fever; 7:Obese; 8:On deep vein thrombosis (DVT) prophylaxis Problems No Problems Documented Smoking Status: Never Smoker Functional Status: Sensory Deficits: History of Falls: Mobility Assistance Prior to Admission: Independent ADLs: Independent Current Level of Assistance for Self-Care/Mobility: Cognitive Status: Oriented x 3 Allergies No Known Allergies Measurements: Height: 162.56 cm Weight: 142.9 kg Blood Pressure: 132 mmHg / 84 mmHg BMI: 53.36 kg/m2 Procedures Tonsillectomy and adenoidectomy section (11/11/2019) Immunizations No Immunizations Documented This Visit Final Med List: multivitamin 1 tab By Mouth every day. Care Team Members: Attending Physician: Patric BADILLO DO Consulting Physician: Referring Physician: Follow up: With: Address: When: MOIZ [address] [address] Business (1) Patient Education Information: Diarrhea, Adult; Dehydration, AdultNormalBarney Children'S Medical CenterInpatient Patient Summaryon [id number] Patient Summary [address] [address] Patient Discharge Instructions PERSON INFORMATION Name: JADE MORRIS Date of : 2000 Current Date: 04/06/2023 10:47:59 PHYSICIANS Admitting Physician: Patric BADILLO DO Primary Care Physician: MOIZ DIAZ DO PCP Comment: Discharge Diagnosis: 1:RADHA (acute kidney injury); 2:Acute diarrhea; 3:Dehydration; 4:Sinus tachycardia; 5:Abdominal pain; 6:Fever; 7:Obese; 8:On deep vein thrombosis (DVT) prophylaxis Condition at Discharge: Stable JADE MORRIS has been given the following list of follow-up instructions, prescriptions, and patient education materials: PATIENT FOLLOW-UP INFORMATION Diet: Calorie Controlled- 1800 Calorie Diet Discharge Activity: Ambulate as tolerated Discharge Restrictions: Wound Care Instructions: Remove Your Dressing In Days Call Your Doctor For: IF UNABLE TO CONTACT YOUR PHYSICIAN AND YOU FEEL IT IS AN EMERGENCY, GO TO THE NEAREST EMERGENCY ROOM OR CALL 911 Home Treatment: Devices/Equipment: None Special Services: Additional Instructions: Primary Care Physician to provide the following pending test results: None Follow up: With: Address: When: MOIZ NE[address] [address] Business (1) In the event that this physician does not participate in your insurance network, please consult with your insurance company to find a nearby participating provider. Comment: NAIDA ThomsonJADE, have received the attached patient education materials/instructions and have verbalized understanding: Patient Signature Date Clinican/Nurse Signature Date HERE ARE THE MEDICATION CHANGES THAT OCCURRED DURING YOUR HOSPITAL STAY Medications to Continue with No Changes Other Medications multivitamin 1 tab By Mouth every day. Last Dose: Next Dose: No Longer Take the Following Medications ibuprofen 400 Milligram By Mouth every 6 hours as needed as needed for pain. Comment: MEDICATION LIST PROVIDED FOR YOU IS A LIST OF YOUR CURRENT MEDICATIONS. PLEASE CARRY THIS WITH YOU AT ALL TIMES. multivitamin 1 tab By Mouth every day. Pharmacy Information: Comment: PATIENT EDUCATION INFORMATION Instructions: Diarrhea, Adult Diarrhea is frequent loose and watery bowel movements. Diarrhea can make you feel weak and cause you to become dehydrated. Dehydration can make you tired and thirsty, cause you to have a dry mouth, and decrease how often you urinate. Diarrhea typically lasts 2?3 days. However, it can last longer if it is a sign of something more serious. It is important to treat your diarrhea as told by your health care provider. Follow these instructions at home: Eating and drinking Follow these recommendations as told by your health care provider: ? Take an oral rehydration solution (ORS). This is an bkfd-hpc-ueetgkn medicine that helps return your body to its normal balance of nutrients and water. It is found at pharmacies and retail stores. ? Drink plenty of fluids, such as water, ice chips, diluted fruit juice, and low-calorie sports drinks. You can drink milk also, if desired. ? Avoid drinking fluids that contain a lot of sugar or caffeine, such as energy drinks, sports drinks, and soda. ? Eat bland, dwlj-ob-fhmjuq foods in small amounts as you are able. These foods include bananas, applesauce, rice, lean meats, toast, and crackers. ? Avoid alcohol. ? Avoid spicy or fatty foods. Medicines ? Take mfpd-sak-cpzbdko and prescription medicines only as told by your health care provider. ? If you were prescribed an antibiotic medicine, take it as told by your health care provider. Do not stop using the antibiotic even if you start to feel better. General instructions ? Wash your hands often using soap and water. If soap and water are not available, use a hand watch and clock repair clerk. Others in the household should wash their hands as well. Hands should be washed: ? After using the toilet or changing a diaper. ? Before preparing, cooking, or serving food. ? While caring for a sick person or while visiting someone in a hospital. ? Drink enough fluid to keep your urine pale yellow. ? Rest at home while you recover. ? Watch your condition for any changes. ? Take a warm bath to relieve any burning or pain from frequent diarrhea episodes. ? Keep all follow-up visits as told by your health care provider. This is important. Contact a health care provider if: ? You have a fever. ? Your diarrhea gets worse. ? You have new symptoms. ? You cannot keep fluids down. ? You feel light-headed or dizzy. ? You have a headache. (more content not included)...[facility] CenterInterdisciplinary Note - Case Manageron 11-08-3679Mgkcdubyupeiumqqs Note - Case ManagerCRM to room to discuss DC planning. Patient participates in DC planning. Patient is observation forAcute Diarrhea, dehydration, gastritis. Patient was rounded on by DR Soto, see notes. Patient will DC home today if no more loose stools, and if able to tolerate diet. Patient denied any needs or services at [place]. Patient was provided CRM contact info/ number, white board updated. CRM followingNoCincinnati Shriners HospitalComment on above:Result Comment: Electronically Signed By: Suzan Dobson\.barrett\Date and Time Signed: 04/06/23 13:47 EDTMonitor Recordon [id number] Record [id number]#1.00CD:127NormalBarney Children'S Medical CenterMonitor [id number]#1.00CD:127Normal [facility] Medical CenterMonitor Record [id number]#1.00CD:127NormalBarney Children'S Medical CentereGFRon 75-25-2672JKJ/1.73 sq M.predicted among non-blacks MDRD (S/P/Bld) [Vol rate/Area]72 mL/min/1.73 x4Cmrwwv>=59Barney Children'S Medical CenterComment on above:Order Comment: Order added by Discern Expert.Result Comment: Chronic kidney disease could be indicated at eGFR's of less than 60 mL/min/1.73m2. K idney failure is indicated at less than 15 mL/min/1.73m2.Performed By: #### [id number], [id number] ####[facility] [address] [place], [place] [address]Dzbs Diffon 67-52-1113Rbufwoflt/100 WBC (Bld)0.2 %Normal 0.0-2.0Bar[facility] Children'S Medical CenterComment on above:Order Comment: Order Added by Discern Expert.Performed By: #### 8030294, 1723081, 36504920, 3067333, 18833484, 9426776, 47097837, 1952576, 26239324, 1984283, 3935781 #### [facility] [address] [place], [place] [address]Zcqmhgyzq/Leukocytes Auto (Bld) [Pure # fraction]0.0 E9/LNormal 0.0-0.2FHocking Valley Community HospitalComment on above:Order Comment: Order Added by Discern Expert.Performed By: #### 9416617, 8874673, 91115902, 9095170, 75247727, 2941443, 17448481, 4845605, 08873143, 3457426, 0188691 #### [facility] [address] [place] [address]Oibgyhigwni/100 WBC (Bld)0.3 %Normal0.0-8.0[facility] Children'S Medical CenterComment on above:Order Comment: Order Added by Discern Expert.Performed By: #### 4308480, 0222624, 41695746, 3783580, 01476142, 8264847, 01135455, 0345764, 66212689, 7240440, 8658648 #### [facility] [address] [place] [address]Itlbiixgayb/Leukocytes Auto (Bld) [Pure # fraction]0.0 E9/L Normal0.0-0.5FHocking Valley Community HospitalComment on above:Order Comment: Order Added by Discern Expert.Performed By: #### 2062396, 2103425, 09496116, 4327044, 53760395, 6350527, 75746476, 8972744, 87043439, 0484294, 0250406 #### [facility] [address] [place] [address]Yhpnzwnlwcv/100 WBC (Bld)9.9 %Low14.0-50.0Bar[facility] Children'S Medical CenterComment on above:Order Comment: Order Added by Discern Expert.Performed By: #### 1831763, 9019746, 73648406, 7210129, 96823973, 4615725, 22263840, 3567888, 10423286, 9780549, 5357661 #### [facility] [address] [place] [address]Ngoxvrqhrjk/Leukocytes Auto (Bld) [Pure # fraction]0.5 E9/LLow 1.0-4.0Bar[facility] Children'S Medical CenterComment on above:Order Comment: Order Added by Discern Expert.Performed By: #### 3260256, 6873596, 07496024, 7177351, 20532846, 9591555, 97600800, 9465381, 76857244, 3195049, 8018641 #### [facility] [address] [place] [address]Qzapulfec/100 WBC (Bld)1.0 %Low4.0-14.0Bar[facility] Children'S Medical CenterComment on above:Order Comment: Order Added by Discern Expert.Performed By: #### 2662440, 8000227, 44078508, 5417313, 36439014, 5928366, 80494895, 5014987, 72673918, 5591247, 2804141 #### [facility] [address] [place] [address]Lvfpbgykj/Leukocytes Auto (Bld) [Pure # fraction]0.1 E9/LLow 0.2-1.0Bar[facility] Children'S Medical CenterComment on above:Order Comment: Order Added by Discern Expert.Performed By: #### 1564371, 3705057, 54963515, 7058731, 15327397, 3468210, 13719235, 7138232, 15655933, 2759943, 7213761 #### [facility] [address] [place] [address]Aloavlwfyvh/100 WBC (Bld)88.6 %High36.0-75.0Bar[facility] Children'S Medical CenterComment on above:Order Comment: Order Added by Discern Expert. Performed By: #### 0683980, 1771585, 58029608, 4215305, 61059610, 9102525, 35027984, 8376752, 20177281, 6626244, 2245527 #### [facility] [address] [place] [address]Qaadfvbbbww/Leukocytes Auto (Bld) [Pure # fraction]4.5 E9/L Normal2.0-7.5FHocking Valley Community HospitalComment on above:Order Comment: Order Added by Discern Expert.Performed By: #### 4796747, 1248005, 08707202, 6782428, 07669757, 4223284, 88992658, 0177275, 23009735, 4297458, 2081905 #### [facility] [address] [place] [address] hCG Qualon 87-83-8909Kspl hCG QlNegativeNormalBarney Children'S Medical CenterComment on above:Performed By: #### 2140337, 7233480, 13076149, 3202230, 53581580, 1605708, 85776097, 2629966, 51615140, 4658527, 3589705 #### [facility] [address] [place] [address]SHPpu 51-76-8233Akfuqalqra [Mass/Vol]1.5 mg/dLHigh0.5-1.3FHocking Valley Community HospitalComment on above:Performed By: #### 3438783, 7539017, 77169676, 8872691, 17473124, 2121543, 71931015, 8007422, 08510688, 0841709, 8493691 #### [facility] [address] [place] [address]Whkn nitrogen [Mass/Vol]14 mg/dLNormal5-21Bar[facility]S Medical CenterComment on above:Performed By: #### 5100193, 5130549, 85755985, 4979242, 94600751, 9454685, 16168959, 6368244, 75322790, 4445612, 6358876 #### [facility] [address] [place] [address]Spqo nitrogen/Creatinine [Mass ratio]9 No XlsjjBtp96-29BxpkheBarney Children'S Medical CenterComment on above:Performed By: #### 2621092, 3092787, 18989439, 8461127, 54793786, 6538501, 66898061, 9446077, 55178662, 9236711, 6494074 #### [facility] [address], [place] [address]Fxhce gap [Moles/Vol]11 mmol/LNormal6-16Bar[facility]'S Medical CenterComment on above:Performed By: #### 1897298, 2943545, 60176694, 2432706, 49009722, 0459639, 16758263, 7531403, 16363700, 3603247, 2328324 #### [facility] [address], [place] [address]Bxnpgvu [Mass/Vol]8.8 mg/dLLow8.9-11.1FHocking Valley Community HospitalComment on above:Performed By: #### 9850787, 7171618, 25332541, 9313811, 21369391, 6371885, 33242784, 7181863, 74184307, 6017873, 2790116 #### [facility] [address], [place] [address]Thscgwmj [Moles/Vol]110 mmol/GAyelll746-680VmhkbiBarney Children'S Medical CenterComment on above:Performed By: #### 1033388, 2400836, 68546794, 1927347, 83765565, 1637349, 95707756, 4711510, 01406326, 5264851, 2557078 #### [facility] [address], [place] [address]PH2 [Moles/Vol]22 mmol/GXwjylx53-47TukmzkBarney Children'S Medical Center Comment on above:Performed By: #### 9337476, 9109039, 29741039, 2893596, 20485137, 5908623, 33706952, 4135389, 35896463, 0858526, 3465503 #### [facility] [address], [place] [address]Nqvesst [Mass/Vol]116 mg/fFUmqmul73-081BjyqmoBarney Children'S Medical CenterComment on above:Result Comment: If this glucose result represents a fasting glucose, interpretation should refer tothe following reference range: 55-99 mg/dLPerformed By: #### 4347480, 3119602, 59647513, 4824454, 96928745, 2225114, 51872725, 3126046, 46316840, 6225938, 4160399 #### [facility] [address], [place] [address]Vyjssptyt [Moles/Vol]3.6 mmol/LNormal3.5-5.3FHocking Valley Community HospitalComment on above:Performed By: #### 7577099, 3694301, 80480464, 4415124, 00999075, 5872553, 49378585, 5264572, 15019083, 9042883, 3681445 #### [facility] [address], [place] [address]Xlcxmz [Moles/Vol]139 mmol/JUerlbv166-464JrbofeBarney Children'S Medical CenterComment on above:Performed By: #### 4413561, 9199481, 21306635, 7378599, 22280656, 5055761, 13313784, 4176475, 54791309, 4200250, 0219001 #### [facility] [address] [place] [address]Wuf Gas Venon 84-39-6399Knnjgn TestNot ApplicableNormEast Ohio Regional HospitalComment on above:Performed By: #### 19019350 ####[address] [address]Rumre byLAB Invalid Interpretation [facility] HospitalComment on above:Performed By: #### 43456709 ####[address] [address]EDR2 BG21.0Invalid Interpretation [facility] HospitalComment on above:Performed By: #### 89148105 ####[address] [address]uGA7 Ven39.9 mmHgNormal 38.0-50.0Bar[facility]'S Medical CenterComment on above:Performed By: #### 70462678 ####[address] [address]nS Ven7.306Kssspa3.320-7.430Bar[facility]'S Medical CenterComment on above:Performed By: #### 46802943 ####[address] [address]Jjbbpn SiteOTHERNormalBarney Children'S Medical CenterComment on above:Performed By: #### 44412848 ####[address], [place] [address]Scvglh TypeVenous DrawNormalBarney Children'S Medical CenterComment on above:Performed By: #### 25711028 ####[facility] [address] [place], [place] [address]ADY w/ Auto Diffon 04-05-2023 Erythrocyte distribution width (RBC) [Ratio]14.3 %High10.9-14.2FHocking Valley Community HospitalComment on above:Performed By: #### 3584095, 3407053, 96426201, 4253677, 58262812, 6334297, 41582463, 3934006, 43847379, 1939836, 7496673 #### [facility] [address], [place] [address]Mvduiesmlh (Bld) [Volume fraction]41.0 %Hzhxhy90.0-46.0[facility]S Medical CenterComment on above:Performed By: #### 7959510, 7936970, 22004122, 6293785, 70924831, 6958933, 11571694, 7860377, 51886425, 5784838, 1091336 #### [facility] [address], [place] [address]Cuwwdgsxpb (Bld) [Mass/Vol]14.0 g/bOIedkak26.0-16.0[facility] Medical CenterComment on above:Performed By: #### 8261454, 2023120, 08235132, 0902898, 88011497, 8225551, 78046793, 6778048, 86354811, 1559479, [id number] #### [facility] [address], [place] [address]YBM (RBC) [Entitic mass]27.8 xhOwhxdl53.0-34.0[facility]'S Medical CenterComment on above:Performed By: #### [id number], 4427393, 55506021, 5013705, 34722525, 8461145, 86529789, 6585148, 17608181, 5665928, 0254316 #### [facility] [address], [place] [address]GLHF (RBC) [Mass/Vol]34.1 g/wQUysttw81.4-36.0[facility]S Medical CenterComment on above:Performed By: #### [id number], 0799622, 01604821, 8410036, 32457237, 3219213, 57291465, 7777125, 28047218, 8740366, 2132316 #### [facility] [address], [place] [address]NLK (RBC) [Entitic vol]81.6 tWOfhqgm99.0-100.0[facility]S Medical CenterComment on above:Performed By: #### 8083453, 9402879, 79929361, 8836996, 77506348, 5072923, 69457836, 2359383, 66884749, 9619803, 4792814 #### [facility] [address] [place] [address]Yztkndjj mean volume (Bld) [Entitic vol]7.0 fLNormal6.4-10.8 [facility]S Medical CenterComment on above:Performed By: #### [id number], 6739899, 96135680, 0084644, 22205346, 5382594, 86442412, 5515304, 02645546, 0748678, 1311846 #### [facility] [address] [place] [address]Ugbreniny (Bld) [#/Vol]235.0 E9/IYelxuz054.0-500.0[facility]S Medical CenterComment on above:Performed By: #### 3640552, 3320450, 94735198, 9412294, 49497288, 0141381, 11495220, 2390627, 24564621, 1722018, 6738599 #### [facility] [address] [place] [address]TJS (Bld) [#/Vol]5.0 E12/LNormal4.3-5.9[facility]S Medical CenterComment on above:Performed By: #### 7538079, 2682793, 11663933, 0189057, 86886903, 9121113, 79444808, 4604804, 37238630, 6995382, 6070246 #### [facility] [address], [place] [address]HHG corrected for nucl RBC Auto (Bld) [#/Vol]5.1 E9/LNormal 4.0-11.0[facility]S Medical CenterComment on above:Performed By: #### 5381390, 8894808, 33135176, 7474009, 14629143, 0067218, 81929322, 1229776, 50389590, 1517804, 1018694 #### [facility] [address], [place] [address]FGVQLVCKFJasfrki By: SYSTEM SYSTEM on 54-15-2986Uhcnmwsjmlqe Screen method >1000 ng/mL Ql (U)Negative (04/05/23 1:59 AM)NormalNegativeFTMC RemisolBarbiturates Screen Ql (U)Negative (04/05/23 1:59 AM)NormalNegativeFTMC RemisolBenzodiazepines Ql (U)Negative (04/05/23 1:59 AM)NormalNegativeFTMC RemisolCocaine Ql (U)Negative (04/05/23 1:59 AM)NormalNegativeFTMC RemisolOpiates Screen Ql (U)Negative (04/05/23 1:59 AM)NormalNegativeFTMC RemisolPhencyclidine Screen method >25 ng/mL Ql (U)Negative (04/05/23 1:59 AM)NormalNegativeFTMC RemisolTetrahydrocannabinol Screen method >50 ng/mL Ql (U)Negative (04/05/23 1:59 AM)NormalNegativeFTMC RemisolAlbumin [Mass/Vol]3.7 g/dLNormal3.3 - 5.0 gm/dLFTMC RemisolAlbumin/Globulin [Mass ratio]1.2 {ratio}Normal1.1 - 2.2 [facility] RemisolALP [Catalytic activity/Vol]65 [iU]/dTdfikk60 - 98 Int._Unit/LFTMC RemisolALT No additional P-5'-P [Catalytic activity/Vol]19 [iU]/dNormal6 - 46 Int._Unit/LFTMC RemisolAnion gap [Moles/Vol]11 mmol/LNormal6 - 16 mEq/LFTMC RemisolAST [Catalytic activity/Vol]20 [iU]/dNormal5 - 43 Int._Unit/LFTMC Remisol Bilirubin [Mass/Vol]1.1 mg/dLNormal0.0 - 1.1 mg/dLFTMC RemisolBilirubin.direct [Mass/Vol]0.2 mg/dLNormal0.1 - 0.4 mg/dLFTMC RemisolBilirubin.indirect [Mass or moles/Vol]0.9 mg/dLNormal0.1 - 0.9 mg/dLFTMC RemisolCalcium [Mass/Vol]8.8 mg/dL Low8.9 - 11.1 mg/dLFTMC RemisolChloride [Moles/Vol]110 mmol/LVdfztt886 - 111 mmol/LFTMC RemisolCO2 [Moles/Vol]22 mmol/LEyfqnw35 - 31 mmol/LFTMC Remisol Creatinine [Mass/Vol]1.5 mg/dLHigh0.5 - 1.3 mg/dLFTMC RemisolGFR/1.73 sq M.predicted among non-blacks MDRD (S/P/Bld) [Vol rate/Area]50 mL/min/1.73 m2Low >=59mL/min/1.73 m2FT Chem SGlobulin (S) [Mass/Vol]3.1 g/dLNormal1.4 - 4.0 gm/dLFTMC RemisolGlucose [Mass/Vol]116 mg/wPHvivnk42 - 199 mg/dLFTMC Remisol Lactate [Mass/Vol]1.2 mmol/LNormal0.5 - 2.2 mmol/LFTMC RemisolLipase [Catalytic activity/Vol]25 U/DWylstx88 - 58 unit/LFTMC RemisolMagnesium [Mass/Vol]1.6 mg/dL Normal1.3 - 2.4 mg/dLFTMC RemisolPotassium [Moles/Vol]3.6 mmol/LNormal3.5 - 5.3 mmol/LFTMC RemisolProtein [Mass/Vol]6.8 g/dLNormal6.0 - 7.8 gm/dLFTMC Remisol Sodium [Moles/Vol]139 mmol/BSovuhj810 - 145 mmol/LFTMC RemisolTroponin I.cardiac [Mass/Vol]6.80 pg/mLLow10.10 - 27.10 pg/mLFTMC RemisolTSH Qn1.91 m[IU]/LNormal 0.34 - 5.60 mcIU/mLFTMC RemisolUrea nitrogen [Mass/Vol]14 mg/dLNormal5 - 21 mg/dLFTMC RemisolUrea nitrogen/Creatinine [Mass ratio]9 mg/mgLow10 - 20FT[facility] RemisolCT Abdomen/Pelvis w/ Contraston 30-38-0244FL Abdomen/Pelvis w/ Contrast Exam Date/Time: 04/05/2023 01:09 EDT Reason for Exam: Abdominal pain, acute, nonlocalized;Other (please specify) Report IMPRESSION: FINDINGS MOST LIKELY REPRESENTING ENTERITIS. EXAM: CT Abdomen/Pelvis w/ Contrast History: Abdominal pain. Nausea and vomiting. Technique: Multiple contiguous axial images were obtained of the abdomen and pelvis from the level of the lung bases through the ischial tuberosities with IV contrast. Multiplanar reformats were obtained. Delayed images were obtained. Comparison: None available Findings: Lung bases are clear. The liver, gallbladder, spleen, stomach, pancreas, and adrenal glands are within normal limits. The kidneys enhance uniformly. No urinary tract calculi or hydronephrosis. Urinary bladder is suboptimally distended but otherwise unremarkable. The uterus is present. Abdominal aorta is nonaneurysmal. No retroperitoneal or abdominal/pelvic lymphadenopathy. No small bowel obstruction. There are multiple nonspecific nondistended fluid-filled loops of small bowel and there is fluid throughout the colon. No overt colonic mass or pericolonic inflammation. Appendix is within normal limits. No free fluid or free air. No acute osseous abnormality. All CT scans at this facility use dose modulation, iterative reconstruction, and/or weight based dosing when appropriate to reduce radiation dose to as low as reasonably achievable. Report Ordering Provider: Larisa Loera FINAL REPORT Dictated: 04/05/2023 9:43 am Justin Leon DO Signed (Electronic Signature): 04/05/2023 9:43 am Signed by: Justin Leon DO Transcribed by: KEILY Technologist: SON Technical Comments GFR (mL/min/1/73m2) na Contrast: Isovue 300 Contrast amount in ml's: 100NoCincinnati Shriners HospitalConsent for Treatmenton 57-40-4799Feoffls for Treatment [id number]:127NoOhioHealth [facility] Center Clinical Summaryon [id number] Clinical Summary [place] [id number] ED Clinical Summary Person Information Name: JADE MORRIS/[facility]Nik Age: 23 Years : 2000 Sex: Female Language: Malay PCP: MOIZ DIAZ DO Marital Status: Single Visit Id: Visit Reason: Tachycardia; Diarrhea; Nausea and vomiting; Abdominal pain; Palpitations; Shortness of breath; ACUTE DIARRHEA, DEHYDRATION & SINUS TACH Speciality: Acuity: 2 Enc Type: Observation Med Service: Medical Arrival: 04/04/2023 23:51:59 Discharge: LOS: 000 07:03 Checkin: 04/04/2023 23:51:59 Checkout: 04/05/2023 06:54:18 Dispo Type: Admitted as IP to this [facility] EVENTS: Event Name Event Status Request Date/Time Start Date/Time Complete Date/Time Arrive Complete 04/04/2023 23:51:59 04/04/2023 23:51:59 04/04/2023 23:51:59 Document Home Meds Request 04/04/2023 23:51:59 Triage Complete 04/04/2023 23:51:59 04/05/2023 00:03:07 04/05/2023 00:03:07 EKG Complete 04/04/2023 23:56:43 04/04/2023 23:57:52 Bed Assign Complete 04/04/2023 23:58:50 04/04/2023 23:58:50 04/04/2023 23:58:50 Dr Exam Complete 04/04/2023 23:58:50 04/05/2023 00:04:11 04/05/2023 00:04:11 RN Exam Complete 04/04/2023 23:58:50 04/05/2023 00:14:15 04/05/2023 00:14:15 Meds Admin Complete 04/04/2023 23:59:11 04/05/2023 00:25:36 Pending Labs Complete 04/04/2023 23:59:11 04/05/2023 02:34:26 Lab Complete 04/04/2023 23:59:11 04/05/2023 02:34:26 Urine Collect Complete 04/04/2023 23:59:11 04/05/2023 02:34:26 CT Complete 04/04/2023 23:59:11 04/05/2023 00:48:32 04/05/2023 01:09:58 RT Tx/ABG Complete 04/04/2023 23:59:11 04/05/2023 00:18:57 04/05/2023 00:18:57 Meds Admin Request 04/05/2023 00:02:14 Registration Complete 04/05/2023 00:04:11 04/05/2023 01:46:05 04/05/2023 01:46:05 X-Ray Complete 04/05/2023 00:04:51 04/05/2023 01:10:16 Pending Labs Complete 04/05/2023 00:12:56 04/05/2023 00:12:56 04/05/2023 00:35:29 Lab Complete 04/05/2023 00:12:56 04/05/2023 00:12:56 04/05/2023 00:35:29 Pending Labs Complete 04/05/2023 00:17:05 04/05/2023 00:17:05 04/05/2023 00:17:15 Lab Complete 04/05/2023 00:17:05 04/05/2023 00:17:05 04/05/2023 00:17:15 Wet Read Request 04/05/2023 01:10:16 Meds Admin Complete 04/05/2023 01:14:28 04/05/2023 01:31:18 Meds Admin Complete 04/05/2023 01:41:24 04/05/2023 02:48:16 Reg Complete Request 04/05/2023 01:46:05 Reg Bed Request Complete 04/05/2023 01:46:05 04/05/2023 01:46:05 04/05/2023 01:46:05 Pending Labs Complete 04/05/2023 02:20:38 04/05/2023 02:20:38 04/05/2023 02:20:39 Meds Admin Request 04/05/2023 02:50:45 Pending Labs Complete 04/05/2023 04:38:29 04/05/2023 04:38:29 04/05/2023 04:51:11 Pending Labs Complete 04/05/2023 04:41:12 04/05/2023 04:41:12 04/05/2023 04:51:17 Consult Request 04/05/2023 04:43:19 Hospitalist Consult Request 04/05/2023 04:43:19 Patient Care Request 04/05/2023 04:45:00 Patient Care Request 04/05/2023 04:45:00 Patient Care Request 04/05/2023 04:45:00 Patient Care Request 04/05/2023 04:45:00 Pending Labs Complete 04/05/2023 04:45:03 04/05/2023 04:45:03 04/05/2023 04:45:04 Pending Labs Complete 04/05/2023 04:47:15 04/05/2023 04:47:15 04/05/2023 05:16:29 Pending Labs Complete 04/05/2023 04:49:00 04/05/2023 04:49:00 04/05/2023 05:07:32 Lab Complete 04/05/2023 04:49:00 04/05/2023 04:49:00 04/05/2023 05:07:32 Urine Collect Complete 04/05/2023 04:49:00 04/05/2023 04:49:00 04/05/2023 05:07:32 ADDRESS: [address] [place] [id number] PHYS DOC NOTES: MEDICAL INFORMATION: Prescriptions Given: PATIENT EDUCATION INFORMATION: Instructions: Follow up: DIAGNOSIS: RADHA (acute kidney injury); Acute diarrhea; Dehydration; Sinus tachycardiaNormal [facility] CenterED Note-Nursingon [id number] Note-Nursingpt had diarrhea x 2 Meds given Oral liquids givenNoElana Bustos Medical CenterED Note-Physicianon [id number] Note-PhysicianBasic Information Time Seen: Larisa Loera DO 04/05/2023 00:04 Chief Complaint Pt in ED via squad c/o abdominal pain since thursday afternoon with diarrhea. Tonight @ 2300 was shaking and having SOB, nausea and vomited once History of Present Illness Patient is a 23-year-old female with no past medical history presenting to the ED for evaluation ofabdominal pain, diarrhea, shortness of breath. Patient states she started having diarrhea on Thursday, was having episodes every 5 to 10 minutes. Patient states this evening at 11 PM started having shaking and shortness of breath and nausea and vomiting. EMS was called patient found to have a heart rate in the 180s appeared to be SVT on the monitor was given adenosine twice with minimal change in her heart rhythm. Patient denies any chest pain,, dizziness or lightheadedness. Denies previous history of this. No family history of heart disease at a young age. Review of Systems A 10 point review of systems is negative except as noted above. Medical and Surgical History: Reviewed and noted Social history: Lives at home Tobacco: Denies Physical Exam Vitals & Measurements HR: 151(Peripheral) RR: 20 BP: 104/73 SpO2: 92% HT: 162.56 cm WT: 141 kg BMI: 53.36 General: Well developed, non toxic appearing, no acute distress HEENT: Head atraumatic, Mucosa moist, hearing grossly normal Neck: No JVD, tracheal deviation Cardiac: Tachycardic, regular rhythm no murmurs, or gallops, 2+ radial pulses Respiratory: Lungs clear to auscultation B/L, normal respiratory effort Abdomen: Soft tenderness palpation of the lower abdomen diffusely no rebound or guarding, no peritoneal signs Extremities: No edema noted in the LE B/L, no tenderness to palpation Neurologic: Alert and oriented, speech clear Skin: No rashes or lesions Psych: Appropriate mood and behavior Medical Decision Making MEDICAL DECISION MAKING Number and Complexity of Problems Differential Diagnosis: [] [facility] Data External documents reviewed: [] My EKG interpretation: [] My CT interpretation: [] My X-ray interpretation: [] My Ultrasound interpretation: [] Decision rules/scores evaluated: [] Discussed with: [] Treatment and Disposition ED Course: Patient is a 23-year-old female presenting to the ED for evaluation of abdominal pain, diarrhea, nausea vomiting palpitations. Prehospital EKG was transmitted it does appear to be a very fast sinus tachycardia there do appear to be P waves however it is difficult to interpret due to the significantly elevated heart rate. Patient is in sinus tachycardia on arrival heart rate in the 150sotherwise in no acute distress. Laboratory evaluation is obtained. Patient's heart rate is likely secondary to volume depletion secondary to her frequent episodes of diarrhea. She is given Toradol, IV fluids. CT ab pelvis is ordered to evaluate for intra-abdominal pathology. Patient's laboratory richy luation shows a creatinine of 1.5 but is otherwise unremarkable. test is negative. CT on pelvis shows findings consistent with enteritis but no evidence of other acute intra-abdominal pathology. Patient was given a total of 3 L of IV fluids, heart remained persistently tachycardic in the 1 teens to 120s. Patient was given Imodium with some improvement of her diarrhea however patient continued to have diarrhea. Due to patient's persistent tachycardia decision was made to admit the patient to the hospital. I discussed the case with the hospitalist who is in agreement with this plan. Shared decision making: [] Code status: [] CC time: 39 minutes Due to a high probability of clinically significant, life threatening deterioration, the patient required my highest level of preparedness to intervene emergently and I personally spent this criticalcare time directly and personally managing the patient. This critical care time included obtaining a history; examining the patient; pulse oximetry; ordering and review of studies; arranging urgent treatment with development of a management plan; evaluation of patient's response to treatment; frequent reassessment; and, discussions with other providers. This critical care time was performed to assess and manage the high probability of imminent, life-threatening deterioration that could result in patient deterioration. It was exclusive of separately billable procedures and treating other patients and teaching time. Assessment/Plan Acute diarrhea (R19.7: Diarrhea, unspecified) RADHA (acute kidney injury) (N17.9: Acute kidney failure, unspecified) Dehydration (E86.0: Dehydration) Sinus tachycardia (R00.0: Tachycardia, unspecified) Orders: ketorolac, 30 mg = 1 mL, Injection, IV Push, Once, Stop date 04/04/23 23:58:00 EDT, STAT, Start date 04/04/23 23:58:00 EDT, 04/04/23 23:58:00 EDT loperamide, 4 mg = 2 tab(s), Tab, Oral, Once, Stop date 04/05/23 1:41:00 EDT, STAT, Start date 04/05/23 1:41:00 EDT, 04/05/23 1:41:00 EDT magnesium s (more content not included)...[facility] Comment on above:Result Comment: Electronically Signed By: Larisa Loera DO\.br\Date and Time Signed: 04/05/23 04:54 EDTED Patient Education Noteon [id number] Patient Education NoteNoOhioHealth [facility] Medical Center Patient Summaryon [id number] Patient Summary [place] [id number] Patient Discharge Instructions Person Information Name: JADE MORRIS Age: 23 Years Arrival Date: 04/04/2023 23:51:59 Discharge Diagnosis: RADHA (acute kidney injury); Acute diarrhea; Dehydration; Sinus tachycardia Primary Care Physician: MOIZ DIAZ DO Provider Information Primary Provider: Larisa Loera DO Advanced Track Mechanic:None The exam and treatment you received in the Emergency Department were for an urgent problem and are not intended as complete care. It is important that you follow up with a doctor, nurse practitioner,or physician?s permit review assistant for ongoing care. If your symptoms become worse or you do not improve as expected and you are unable to reach your usual health care provider, you should return to the Emergency Department. We are available 24 hours a day. JADE MORRIS has been given the following list of patient education materials, prescriptions and follow-up instructions: Follow-up Instructions: In the event that this physician does not participate in your insurance network, please consult with your insurance company to find a nearby participating provider. Patient Education Materials: A MESSAGE TO ALL PATIENTS REGARDING OPIOIDS PRESCRIPTION OPIOIDS: WHAT YOU NEED TO KNOW Prescription opioids can be used to help relieve zvazchuq-ka-debjpc pain and are often prescribed following a surgery or injury, or for certain health conditions. These medications can be an important part of the treatment but also come with serious risks. It is important to work with your healthcare provider to make sure you are getting the safest, most effective care. WHAT ARE THE RISKS AND SIDE EFFECTS OF OPIOID USE? Prescription opioids carry serious risks of addiction and overdose, especially with prolonged use. An opioid overdose, often marked by slowed breathing, can cause sudden . The use of prescription opioids can have a number of side effects as well, even when taken as directed: ? Tolerance?meaning you might need to take more of the medication for the same pain relief ? Physical dependence?meaning you have symptoms of withdrawal when a medication is stopped ? Increased sensitivity to pain ? Constipation ? Nausea, vomiting, and dry mouth ? Sleepiness and dizziness ? Confusion ? Depression ? Low levels of testosterone that can result in lower sex drive, energy, and strength ? Itching and sweating RISKS ARE GREATER WITH: ? History of drug misuse, substance use disorder, or overdose ? Mental health conditions (such as depression or anxiety) ? Sleep apnea ? Older age (65 years and older) ? Avoid alcohol while taking prescription opioids. Also, unless specifically advised by your health care provider, medications to avoid include: ? Benzodiazepines (such as Xanax or Valium) ? Muscle relaxants (such as Soma or Flexeril) ? Hypnotics (such as Ambien or Lunesta) ? Other prescription opioids KNOW YOUR OPTIONS Talk to your health care provider about ways to manage your pain that don?t involve prescription opioids. Some of these options may actually work better and have fewer risks and side effects. Optionsmay include: ? Pain relievers such as acetaminophen, ibuprofen, and naproxen ? Some medication that are also used for depression or seizures ? Physical therapy and exercise ? Cognitive behavioral therapy, a psychological, goal-directed approach, in which patients learn how to modify physical, behavioral, and emotional triggers of pain and stress. IF YOU ARE PRESCRIBED OPIOIDS FOR PAIN: ? Never take opioids in greater amounts or more often than prescribed. ? Follow up with your primary health care provider. o Work together to create a plan on how to manage your pain. o Talk about ways to help manage your pain that don?t involve prescription opioids. o Talk about any and all concerns and side effects. ? Help prevent misuse and abuse o Never sell or share prescription opioids. o Never use another person?s prescription opioids. ? Store prescription opioids in a secure place and out of reach of others (this may include visitors, children, friends, and family). ? Safely dispose of unused prescription opioids: Find your community drug take- back program or [employer] mail-back program, or flush them down the toilet, following guidance from the Food and Drug Administration (www.fda.gov/Drugs/ResourcesForYou). ? Visit www.cdc.gov/drugoverdose to learn about the risks of opioids abuse and overdose. ? If you believe you may be struggling with addiction, tell your health college and career counselor and ask for guidance or call [facility]?S National Helpline at 2-588-869-MZQM. d Source: [place] Department of Health and Human Services/Center for Disease Control & Prevention [facility] Medication (more content not included)...[facility] CenterFT Blood GasesOrdered By: Clare Colby on 07-50-2201Iwwuag TestNot Applicable (04/05/23 12:08 AM)NormalDR[facility]RIGHT [facility] [place] Resp Auto SSDrawn byLABInvalid Interpretation Code [facility] [place] Resp Auto SSFIO2 BG21.0Invalid Interpretation CodeDRUMRIGHT REGIONAL [facility] [place] Resp Auto SSpCO2 Marcos 39.9 mm[Hg]Pvajjp78.0 - 50.0 mmHgDRUMRIGHT REGIONAL HOSP[facility] – [place] Resp Auto SSpH Ven7.259Epqumv9.320 - 7.430 [facility] [place] Resp Auto SSSample SiteOTHER (04/05/23 12:08 AM)NormalDRUMRIGHT REGIONAL [facility] [place] Resp Auto SSSample TypeVenous Draw (04/05/23 12:08 AM)NormalDRUMRIGHT REGIONAL HOSP[facility] [place] Resp Auto SSHEMATOLOGYOrdered By: SYSTEM SYSTEM on 23-71-3427Jdieqbzks/100 WBC (Bld)0.2 %Normal0.0 - 2.0 %[facility] HemeAutoSS Basophils/Leukocytes Auto (Bld) [Pure # fraction]0.0 E9/LNormal0.0 - 0.2 E9/L [facility] HemeAutoSSEosinophils/100 WBC (Bld)0.3 %Normal0.0 - 8.0 %[facility] HemeAutoSS Eosinophils/Leukocytes Auto (Bld) [Pure # fraction]0.0 E9/LNormal0.0 - 0.5 E9/L [facility] HemeAutoSSLymphocytes/100 WBC (Bld)9.9 %Low14.0 - 50.0 %[facility] HemeAutoSS Lymphocytes/Leukocytes Auto (Bld) [Pure # fraction]0.5 E9/LLow1.0 - 4.0 E9/LFT[facility] HemeAutoSSMonocytes/100 WBC (Bld)1.0 %Low4.0 - 14.0 %[facility] HemeAutoSS Monocytes/Leukocytes Auto (Bld) [Pure # fraction]0.1 E9/LLow0.2 - 1.0 E9/LFT[facility] HemeAutoSSNeutrophils/100 WBC (Bld)88.6 %High36.0 - 75.0 %[facility] HemeAutoSS Neutrophils/Leukocytes Auto (Bld) [Pure # fraction]4.5 E9/LNormal2.0 - 7.5 E9/L [facility] HemeAutoSSHEMATOLOGYOrdered By: Obdulia Matthew on 31-33-8114Xrvuxaxcqrf distribution width (RBC) [Ratio]14.3 %High10.9 - 14.2 %[facility] HemeAutoSSHematocrit (Bld) [Volume fraction]41.0 %Tfyaaq62.0 - 46.0 %[facility] HemeAutoSSHemoglobin (Bld) [Mass/Vol]14.0 g/nATrrviv07.0 - 16.0 gm/dLFTMC HemeAutoSSMCH (RBC) [Entitic mass]27.8 tvJjhqjc10.0 - 34.0 pgFTMC HemeAutoSSMCHC (RBC) [Mass/Vol]34.1 g/dL Ncryam38.4 - 36.0 gm/dLFTMC HemeAutoSSMCV (RBC) [Entitic vol]81.6 hITwyprv44.0 - 100.0 fLFTMC HemeAutoSSPlatelet mean volume (Bld) [Entitic vol]7.0 fLNormal6.4 - 10.8 fLDRUMRIGHT REGIONAL HOSPITAL [facility] [place] HemeAutoSSPlatelets (Bld) [#/Vol]235.0 E9/RUdmogg994.0 - 500.0 E9/L [facility] [place] HemeAutoSSRBC (Bld) [#/Vol]5.0 E12/LNormal4.3 - 5.9 E12/LFT[facility] HemeAutoSSWBC corrected for nucl RBC Auto (Bld) [#/Vol]5.1 E9/LNormal4.0 - 11.0 E9/LFHOLDENVILLE [facility] [place] HemeAutoSSHep Func Panelon 94-12-7165Ukghhqe [Mass/Vol]3.7 g/dLNormal3.3-5.0 [facility] Medical CenterComment on above:Performed By: #### [id number], 0540614, 51767591, 1134527, 56619983, 2631646, 97550230, 6815964, 91059655, 3064040, 2387837 ####[facility] [address] [place], [place] [address]Jdtibfg/Globulin (S) [Mass conc ratio]1.5Noghax9.1-2.2FHocking Valley Community HospitalComment on above:Performed By: #### [id number], 7046572, 95470582, 0112048, 99110033, 0917456, 72534254, 0626569, 82827475, 6892405, 3954018 ####[facility] [address] [place], [place] [address]TNA [Catalytic activity/Vol]65 Int._Unit/OBkubyf87-59TrntwyBarney Children'S Medical CenterComment on above:Performed By: #### [id number], 7451764, 24436991, 4374331, 62109801, 3740391, 59034093, 7646779, 18528330, 4817460, 8709206 ####[facility] [address] [place], [place] [address]GGC No additional P-5'-P [Catalytic activity/Vol]19 Int._Unit/LNormal6-46[facility]S Medical CenterComment on above:Performed By: #### [id number], [id number], 02191260, 6204865, 34403834, 2760809, 78184181, 0297438, 59331382, 4161127, 0725675 ####[facility] [address] [place], [place] [address]EXC [Catalytic activity/Vol]20 Int._Unit/LNormal5-43Bar[facility]'S Medical CenterComment on above:Performed By: #### 2601206, 4538069, 66655025, 0454281, 60601573, 0905700, 33686711, 3154201, 56127507, 6158219, 2484991 ####[address] [address]Ybfvqzknx [Mass/Vol]1.1 mg/dLNormal0.0-1.1FHocking Valley Community HospitalComment on above:Performed By: #### 4213564, 5471798, 36963917, 0466858, 04442843, 9729774, 73371511, 8606935, 02953857, 9387423, 9194578 ####[address] [address]Dmiiywcln.direct [Mass/Vol]0.2 mg/dLNormal0.1-0.4FHocking Valley Community HospitalComment on above:Performed By: #### 8787234, 9517590, 47192258, 3306957, 74822182, 5732609, 77802100, 8084973, 65542712, 6162659, 4062112 ####[facility] [address] [place] [address] Bilirubin.indirect [Mass or moles/Vol]0.9 mg/dLNormal0.1-0.9[facility]S Medical CenterComment on above:Performed By: #### 5489656, 0227512, 34123316, 3672097, 44879082, 5751167, 44025949, 7031389, 07254793, 0442470, 3836650 ####[facility] [address] [place], [place] [address]Wvupjfby (S) [Mass/Vol]3.1 g/dLNormal1.4-4.0Bar[facility]'S Medical CenterComment on above: Performed By: #### 6813341, 5836646, 97770624, 2356369, 49054955, 1169016, 48747730, 2841546, 50577279, 3574455, 4640119 ####[facility] [address] [place], [place] [address]Ctimknh [Mass/Vol]6.8 g/dLNormal 6.0-7.8[facility]S Medical CenterComment on above:Performed By: #### 3306131, 0285394, 92687202, 9268072, 28222986, 8807199, 80667636, 5006963, 42433749, 0552358, 1364515 ####[facility] [address] [place], [place] [address]Ositenqagfcrbvntb Note - Case Manageron 04-05-2023 Interdisciplinary Note - Case ManagerCRM spoke with patient and her mother in room.. Patient was previous rounded on by Dr Han today and treating for gastritis and r/o CVID which was negative. Patient is alert and oriented. Whiteboard updated and CRM contact # provided. Patient verified PCP, insurance and denies any DME. Patient isfrom home with her fiance and child and family will transport at discharge. She denies any needs atdischarge.NormalBarney Children'S Medical CenterComment on above:Result Comment: Electronically Signed By: Tony DE PAZ, Payal\.br\Date and Time Signed: 04/05/23 12:37 EDTLactic Acidon 04-05-2023 Lactate [Mass/Vol]1.2 mmol/LNormal0.5-2.2[facility] Orthopaedic InstituteComment on above:Performed By: #### 0138700, 1451320, 19005134, 4709838, 51167183, 0084023, 41933181, 4015503, 86488950, 2625119, 0309606 #### [facility] Laboratory [address] [place], [place] [address]Sikcqa Levelon 85-03-9284Surwsp [Catalytic activity/Vol]25 U/L Mfwoss42-90OfcmpoBarney Children'S Medical CenterComment on above:Performed By: #### 8367976, 9996884, 02768363, 4948373, 09908925, 7061861, 01185796, 8798693, 23785527, 5254379, 0163641 #### [facility] Laboratory [address], [place] [address]GVQMA OTHER TESTSOrdered By: Yen Saldaña on 04-05-2023 Rapid COV Int NEG CtlPass (04/05/23 11:00 AM)NormalDRUMRIGHT [facility] Man SeroRapid COV Int POS CtlPass (04/05/23 11:00 AM)NormalDRUMRIGHT REGIONAL [facility]OS[facility] Man SeroSARS-CoV+SARS-CoV-2 (COVID-19) Ag IA.rapid Ql (Resp)Not Detected (04/05/23 11:00 AM)NormalNot DetectedDRUMRIGHT REGIONAL HOSPITAL – [facility] Man SeroMagnesiumon 75-03-6414Psdxcuehm [Mass/Vol]1.6 mg/dLNormal1.3-2.4[facility] Orthopa[facility] InstituteComment on above: Performed By: #### 6620673, 8379182, 79802783, 7099925, 82120623, 5018355, 61998417, 6700092, 75994470, 5959735, 6952139 ####[facility] [address] [place], [place] [address]Lezlcqe Recordon 87-84-8966Ximtcpn [id number]#1.00CD:127NormalBarney Children'S Medical CenterMonitor [id number]#1.00CD:127 NormalSouthern Ohio Medical Centeritor Record [id number]#1.00CD:127NormalSouthern Ohio Medical Centeritor [id number]#1.00CD:127Normal [facility] Medical CenterMonitor Record [id number]#1.00CD:127[facility] CenterPre-Arrival Noteon 89-52-3779Fkx-Arrival NotePre-Arrival Summary Name: , Current Date: 04/04/2023 23:59:02 EDT Gender: Date of : Age: Pre-Arrival Type: EMS ETA: 04/05/2023 00:13:00 EDT Primary Care Physician: Presenting Problem: Abdominal pain, n/v/d Pre-Arrival User: Kavon Crouch Jalennestor Campos Referring Source: Location: PA Completion Date/Time: 04/04/2023 23:43:00 [facility] Emergency Department Pre-Hospital Report Form Vital Signs: 136/95; 182, down to 165 on SVT; 98% RA Pre-Hospital Report: Treatment in Route: Adenocarb x 2 ; 4mg zofran Response to Treatment: Misc. Issues:[facility] CenterRAD - Preliminary Cat Scan Report on 73-56-0703BBE - Preliminary Cat Scan Report [id number]#1.00CD:127NoCincinnati Shriners HospitalRapid COVID Antigen ([facility])on 28-01-5384Tecgh COV Int NEG CtlPassNormal [facility]S Medical CenterComment on above:Performed By: #### [id number] ####[facility] [address] [place]Heeep COV Int POS CtlPassNormEast Ohio Regional HospitalComment on above:Performed By: #### [id number] ####[facility] [address] [place]TCEC-WzH+SARS-CoV-2 (COVID-19) Ag IA.rapid Ql (Resp)Not detectedNormalNot DetectedBarney Children'S Medical CenterComment on above:Result Comment: The [employer]? System for Rapid Detection of SARS-CoV-2 is a chromatographic digital immunoassay intended for the direct and qualitative detection of SARS-CoV-2 nucleocapsid antigensin nasal swabs from individuals who are suspected of COVID-19 by their healthcare provider within the first five days of the onset of symptoms. Negative results should be treated as presumptive, do not rule out SARS-CoV-2 infection and should not be used as the sole basis for treatment or patient management decisions, including infection control decisions. Negative results should be considered in the context of a patient?s recent exposures, history and the presence of clinical signs and symptoms consistent with COVID-19, and confirmed with a molecular assay, if necessary, for patient management. For in vitro diagnostic use. In the [facility], only for use under an Emergency Use Authorization. In the [place], this test has not been FDA cleared or approved; this test has been authorized by FDA under an EUA for use by authorized laboratories; use by laboratories certified under the CLIA, 42 U.S.C. ?263a, that meet requirements to perform moderate, high, or waived complexity tests and at the Point of Care (POC), i.e., in patient care settings operating under a CLIA Certificate of Waiver, Certificate of Compliance, or Certificate of Accreditation. This test has been authorized only for the detection of proteins from SARS-CoV-2, not for any otherviruses or pathogens; and, in the [facility], this test is only authorized for the duration of the declaration that circumstances exist justifying the authorization of emergency use of in vitro diagnostics for detection and/or diagnosis of the virus that causes COVID-19 under Section 564(b)(1) of the Act,21 U.S.C. ? 360bbb-3(b)(1), unless the authorization is terminated or revoked sooner.Performed By: #### [id number] ####[facility] [address], [place]JSBPSZBK TO INTENSIVE CARE UNIT FOR CONDITION OF INTEREST:FIND:PT:NONormalBarney Children'S Medical Center Comment on above:Performed By: #### [id number] ####[address], [id number] IN A HEALTHCARE SETTING:FIND:PT:NONThe [facility] Medical CenterComment on above:Performed By: #### [id number] ####[address], [id number] TEST FOR CONDITION OF INTEREST:FIND:PT:UnknownNormal [facility] Medical CenterComment on above:Performed By: #### [id number] ####[address], [id number] SYMPTOMS RELATED TO CONDITION OF INTEREST:FIND:PT:YESNormalBarney Children'S Medical CenterComment on above:Performed By: #### [id number] ####[address]HOSPITALIZED FOR CONDITION OF INTEREST:FIND:PT:NONThe [facility] Medical CenterComment on above:Performed By: #### [id number] ####[address], [id number] STATUS:FIND:PT:NONThe [facility] Comment on above:Performed By: #### [id number] ####[address], [id number] IN A CONGREGATE CARE SETTING:FIND:PT:[facility] Main CampusComment on above:Performed By: #### [id number] ####[address], [id number] By: Obdulia Matthew on 71-12-4359Ficg hCG Ql Negative (04/05/23 12:07 AM)[facility] Man SeroTSH With T4fr Reflexon 76-78-1830VCK Qn1.91 m[IU]/LNormal0.34-5.60[facility]S Medical CenterComment on above:Performed By: #### 2882743, 8914667, 20821791, 2166091, 56071234, 3058789, 81603626, 2552757, 21382791, 6881812, 5403957 ####[address] [place], [place] [address]Jioricpz 0 Hr.on 16-61-6415Wlaxvhyz I.cardiac [Mass/Vol]6.80 pg/mLLow10.10-27.10[facility]S Medical CenterComment on above: Result Comment: The 95% CI (Confidence Interval) PPV (Positive Predictive Value) for myocardial infarction in females is 38 pg/mL, in males 51 pg/mL. The results should be used in conjunction with clinical conditions of myocardial infarction. (Access High Sensitivity Troponin I Instructions For Use, [employer], June 2018)Performed By: #### 5411966, 7857401, 52249588, 5997010, 40390127, 4457101, 56299718, 6814320, 87061081, 7861467, 2354585 ####[address] [place], [place] [address]J Drug Screenon 04-05-2023 Amphetamines Screen method >1000 ng/mL Ql (U)NegativeNormalNegativeBarney Children'S Medical CenterComment on above:Result Comment: Negative Cutoff: <1000 ng/mL Performed By: #### [id number], 7759430 ####[address] [place], [place] [address]Pyragpwwztli Screen Ql (U)Negative NormalNegativeBarney Children'S Medical CenterComment on above:Result Comment: Negative Cutoff: <200 ng/mLPerformed By: #### 72561845, 0818070 ####[address] [place], [place] [address]Ngxsxlisutaqwae Ql (U)NegativeNormalNegativeBarney Children'S Medical CenterComment on above:Result Comment: Negative Cutoff: <200 ng/mLPerformed By: #### 45461056, 6552908 ####[address] [place] [address] Cocaine Ql (U)NegativeNormalNegativeBarney Children'S Medical CenterComment on above: Result Comment: Negative Cutoff: <300 ng/mLPerformed By: #### 49107784, 1242673 ####[address] [address] Opiates Screen Ql (U)NegativeNormalNegativeBarney Children'S Medical CenterComment on above:Result Comment: Negative Cutoff: <300 ng/mLPerformed By: #### 91848478, 2355814 ####[address] [address]Hykrienviawzj Screen method >25 ng/mL Ql (U)NegativeNormalNegativeBarney Children'S Medical CenterComment on above:Result Comment: Negative Cutoff: <25 ng/mL These drug screen results are to be used for medical (i.e., treatment) purposes only. Unconfirmed drug screening results must not be used for non-medical purposes (e.g., employment testing, legal testing).Performed By: #### 94029273, 9329393 ####[address] [address]Ifnauunrscghgfbbkppr Screen method >50 ng/mL Ql (U)NegativeNormalNegative [facility] CenterComment on above:Result Comment: Negative Cutoff: <50 ng/mLPerformed By: #### 25470753, 0380196 ####[address] [address]EY With Cult Reflexon 04-05-2023 Bacteria LM Ql (Urine sed)TRACENormalTraceBarney Children'S Medical CenterComment on above:Performed By: #### 68961702, 5711810 ####[address] [address]Gagdbkimt Ql (U)NegativeNormal NegativeBarney Children'S Medical CenterComment on above:Performed By: #### 31344154, 1273647 ####[address] [address]Qfursel (U)CLEARNormalClearBarney Children'S Medical CenterComment on above: Performed By: #### 91642433, 7528128 ####[facility] [address] [place], [place] [address]Bjmqx (U)YELLOWNormalYellowBarney Children'S Medical CenterComment on above:Performed By: #### 84955965, 7046770 ####[facility] [address] [place] [address] Epithelial cells.squamous LM.HPF (Urine sed) [#/Area]4-6Midlwg1-8Oisbhb [facility]opa[facility] InstituteComment on above:Performed By: #### 52113595, 3690750 ####[facility] [address] [place] [address]Ryyypwp Test strip (U) [Mass/Vol]NegativeNormalNegativeBarney Children'S Medical CenterComment on above:Performed By: #### 24827907, 5634679 ####[address] [address]Mmhqtorgtb Ql (U)2+AbnormalNegative [facility]S Medical CenterComment on above:Performed By: #### 99349731, 7897398 ####[facility] [address] [place] [address] Ketones (U) [Mass/Vol]NegativeNormalNegativeBarney Children'S Medical CenterComment on above:Performed By: #### 59529620, 5299240 ####[address] [address]Skygumf.plasma/Immokalee.RBC (Bld) [Mass ratio]2-0Felztl0-3JbtynxHocking Valley Community HospitalComment on above:Performed By: #### 05430065, 4047498 ####[facility] [address] [place] [address]Sflko Ql (Urine sed)1+NormalBarney Children'S Medical CenterComment on above:Performed By: #### 78593218, 1463947 ####[facility] [address] [place] [address]Enurxoy Ql (U)Negative NormalNegCleveland Clinic Fairview HospitalComment on above:Performed By: #### 24650158, 8530624 ####[address] [address]zI (U)5.0 [pH]Invalid Interpretation Code5.0-9.0[facility]S Medical CenterComment on above:Performed By: #### 94324683, 6307776 ####[address] [address]Gnfggyz (U) [Mass/Vol]NegativeNormalNegativeBarney Children'S Medical CenterComment on above: Performed By: #### 84424282, 3515770 ####[address] [address]Fmbrywte gravity (U) [Rel density] 1.015Invalid Interpretation Code1.005-1.030[facility]'S Medical CenterComment on above:Performed By: #### 03710433, 3067368 ####[address] [address]Qjvc of Urine collection methodClean CatchNoCincinnati Shriners HospitalComment on above:Performed By: #### 00454701, 7156258 ####[address] [address]Pxoeayrngvfi Qn (U)0.2 {Mikala'U}/dLNormal0.0-1.0[facility]S Medical CenterComment on above:Performed By: #### 80793152, 5386437 ####[address] [address]YAL Auto Ql (U)NegativeNormalNegativeBarney Children'S Medical CenterComment on above: Performed By: #### 11648708, 3179216 ####[address] [address]VFV casts LM.LPF (Urine sed) [#/Area] 4-10NormEast Ohio Regional HospitalComment on above:Performed By: #### 71494804, 0246005 ####[address] [address]XHU LM.HPF (Urine sed) [#/Area]1-7Sipmer0-4Znyvxl [facility]opaedic InstituteComment on above:Performed By: #### 15349852, 1770212 ####[facility] [address] [place], [place] [address]NZZNGGNJFP Ordered By: Obdulia Matthew on 14-18-9337Uxqfrajr LM Ql (Urine sed)Trace /HPF NormalTrace/HPFFTMC UA Auto SSBilirubin Ql (U)Negative (04/05/23 1:59 AM)NormalNegativeDRUMRIGHT REGIONAL [facility]OS[facility]ITAL [facility] UA Auto SSClarity (U)Clear (04/05/23 1:59 AM)NormalClearFHOLDENVILLE GENERAL [facility] [place] UA Auto SSColor (U)Yellow (04/05/23 1:59 AM)NormalYellowFT UA Auto SSEpithelial cells.squamous LM.HPF (Urine sed) [#/Area]5-8 /HPFNormal0-2/HPFFTMC UA Auto SSGlucose Test strip (U) [Mass/Vol]Negative (04/05/23 1:59 AM)NormalNegativeDRUMRIGHT REGIONAL HOS[facility]ITAL [facility] UA Auto SSHemoglobin Ql (U)2+ *ABN* (04/05/23 1:59 AM)Invalid Interpretation CodeNegativeDRUMRIGHT REGIONAL HOSPITAL [facility] [place] UA Auto SSKetones (U) [Mass/Vol]Negative (04/05/23 1:59 AM)NormalNegativeDRUMRIGHT REGIONAL [facility]OS[facility]ITAL [facility] UA Auto SSLithium.plasma/Immokalee.RBC (Bld) [Mass ratio]0-3 /HPFNormal0-3/HPFFTMC UA Auto SSMucus Ql (Urine sed)1+ (04/05/23 1:59 AM)NormalFT UA Auto SSNitrite Ql (U)Negative (04/05/23 1:59 AM)NormalNegativeDRUMRIGHT REGIONAL [facility]OS[facility] [place] UA Auto SSpH (U)5.0 *NA* (04/05/23 1:59 AM)Invalid Interpretation Code5.0 - 9.0DR[facility] UA Auto SSProtein (U) [Mass/Vol]Negative (04/05/23 1:59 AM)NormalNegativeDRUMRIGHT REGIONAL HOSPITAL [facility] [place] UA Auto SSSpecific gravity (U) [Rel density] 1.015 *NA* (04/05/23 1:59 AM)Invalid Interpretation Code1.005 - 1.030[facility] UA Auto SSUA Spec DescClean Catch (04/05/23 1:59 AM)NormalDRUMRIGHT REGIONAL HOSPITAL – [facility] UA Auto SSUrobilinogen Qn (U)0.3203845 {Mikala'U}/dLNormal0.0 - 1.0 EU/dLDRUMRIGHT REGIONAL HOSPITAL – [place] UA Auto SSWBC Auto Ql (U)Negative (04/05/23 1:59 AM)NormalNegativeDRUMRIGHT REGIONAL HOSPITAL [facility] [place] UA Auto SSWBC casts LM.LPF (Urine sed) [#/Area]4-10 (04/05/23 1:59 AM)NormalDRUMRIGHT REGIONAL HOSPITAL [facility] [place] UA Auto SSWBC LM.HPF (Urine sed) [#/Area]0-5 /HPF Normal0-5/HPFDRUMRIGHT REGIONAL HOSPITAL – [place] UA Auto SSXR Chest Single Viewon 40-68-8774AO Chest Single ViewExam Date/Time: 04/05/2023 01:10 EDT Reason for Exam: Difficulty breathing Report IMPRESSION: NO RADIOGRAPHIC EVIDENCE OF ACUTE INTRATHORACIC PROCESS. EXAM: XR Chest Single View History: Difficulty breathing. Abdominal pain. Technique: Portable AP view of the chest. Comparison: None available Findings: The cardiomediastinal silhouette is within normal limits. No pneumothorax, pleural effusion, or consolidation. Bones of the thorax appear intact. Ordering Provider: Larisa Loera FINAL REPORT Dictated: 04/05/2023 8:37 am Justin Leon DO Signed (Electronic Signature): 04/05/2023 8:37 am Signed by: Justin Leon DO Transcribed by: KEILY Technologist: SON Technical Comments Radiation Dose: clau Graf in mGy = na DAP = naNormalBarney Children'S Medical CentereGFRon 19-15-0330CID/1.73 sq M.predicted among non-blacks MDRD (S/P/Bld) [Vol rate/Area]50 mL/min/1.73 m2Low >=[address] [place], [place] [address]Comment on above:Order Comment: Order added by Discern Expert.Result Comment: Chronic kidney disease could be indicated at eGFR's of less than 60 mL/min/1.73m2. Kidney failure is indicated at less than 15 mL/min/1.73m2.Performed By: #### 4061246, 9708104, 00770512, 6818568, 79959773, 5850845, 39646122, 2791331, 49142600, 8671212, 4445818 ####[facility] [address] [place], [place] [address]AYKDFYL BLOODon 69-08-0133Okgxmaqyvqj examination of blood, cultureCulture Observations: NO GROWTH AT 5 DAYS.NormalWayne HospitalComment on above:Performed By: #### BLDCX2 #### [facility] [address] [place] [address] Dr. Rosangela Tenorio W MANUAL DIFFon 12-93-6500VATIWAKH LYMPH #0.10 103/ulNormal Wayne HospitalComment on above:Performed By: #### MADELYN #### [facility] [address] [place] [address] Dr. Rosangela Hernandez LYMPH %1 %NormalWayne HospitalComment on above: Performed By: #### MADELYN #### [facility] [address] [place] [address] Dr. Rosangela Matias #0.1 103/ulNormal0.0-0.3The [facility] Medical CenterComment on above:Performed By: #### MADELYN #### [facility] [address] [place] [address] Dr. Rosangela Matias %1 %Normal0-5The [facility] Medical CenterComment on above:Performed By: #### MADELYN #### [facility] [address] [place] [address] Dr. Rosangela Law #0.00 103/ulNormal0.00-0.10The [facility] Medical CenterComment on above:Performed By: #### MADELYN #### [facility] [address] [place] [address] Dr. Rosangela Law %0.0 %Critically low0.2-2.0Wayne HospitalComment on above:Performed By: #### MADELYN #### [facility] [address] [place] [address] Dr. Rosangela Raza #NormalThe [facility] Atrium Medical CenterComment on above:Performed By: #### CBCMIAN #### [facility] [address] [address] [address] Rosangela LeBLAST %NormalThe [facility] Atrium Medical CenterComment on above:Performed By: #### MADELYN #### [facility] [address] [address] [address] Rosangela LeCORRECTED WBCNormal4.0-11.0The [facility] Medical CenterComment on above: Performed By: #### MADELYN #### [facility] [address] [place] [address] Dr. Rosangela Henry #0.00 103/ulNormal0.00-0.70The [facility] Medical CenterComment on above:Performed By: #### MADELYN #### [facility] [address] [place] [address] Dr. Rosangela Henry%0.0 %Critically low0.9-7.0The [facility] Medical CenterComment on above:Performed By: #### MADELYN #### [facility] [address] [place] [address] Dr. Rosangela LeHCT42.4 %Ksxdmv10.0-48.0The [facility] Medical CenterComment on above: Performed By: #### MADELYN #### [facility] [address] [place] [address] Dr. Rosangela LeHGB14.5 g/eyOnwleo77.0-16.0The [facility] Medical CenterComment on above: Performed By: #### CBCMIAN #### [facility] [address] [place] [address] Dr. Rosangela Blunt #0.28 103/ulCritically low1.20-3.80The [facility] on above:Performed By: #### CBCMIAN #### [facility] [address] [place] [address] Dr. Rosangela Blunt%3.0 %Critically low20.5-60.0The [facility] Medical CenterComment on above:Performed By: #### CBCMIAN #### [facility] [address] [address] [address] Rosangela MerazH27.9 xqWcxjbn30.7-34.0The [facility] Medical CenterComment on above: Performed By: #### MADELYN #### [facility] [address] [address] [address] Rosangela MerazHC34.2 g/wqTcrdft66.9-35.2The [facility] HospitalComment on above:Performed By: #### MADELYN #### [facility] [address] [place] [address] Dr. Rosangela MerazV81.7 kJFvvqwb11.0-99.0The [facility] Medical CenterComment on above: Performed By: #### MADELYN #### [facility] [address] [place] [address] Dr. Rosangela Pleitez #NormalThe [facility] Medical CenterComment on above: Performed By: #### MADELYN #### [facility] [address] [place] [address] Dr. Rosangela AcevedoOCYTE %NormalThe [facility] CenterComment on above: Performed By: #### MADELYN #### [facility] [address] [place] [address] Dr. Rosangela Hills#0.47 103/ulNormal0.30-0.80The [facility] Medical CenterComment on above:Performed By: #### MADELYN #### [facility] [address] [place] [address] Dr. Rosangela Hills%5.0 %Normal1.7-12.0The [facility] Medical CenterComment on above: Performed By: #### MADELYN #### [facility] [address] [place] [address] Dr. Rosangela Mueller8.9 fLCritically low9.5-13.5The [facility] Medical CenterComment on above:Performed By: #### MADELYN #### [facility] [address] [place] [address] Dr. Rosangela Talley #NormalThe [facility] CenterComment on above:Performed By: #### MADELYN #### [facility] [address] [address] [address] Rosangela LehmanELOCYTE %NormalThe [facility] CenterComment on above:Performed By: #### MADELYN #### [facility] [address] [place] [address] Dr. Rosangela LeNRBCNormalThe [facility] CenterComment on above:Performed By: #### MADELYN #### [facility] [address] [address] [address] Rosangela RodrigesT293 103/dqEqouqo366-476Uqk [facility] CenterComment on above: Performed By: #### MADELYN #### [facility] [address] [place] [address] Dr. Rosangela ParkC5.19 106/ulNormal4.20-5.40The [facility] CenterComment on above:Performed By: #### MADELYN #### [facility] [address] [place] [address] Dr. Rosangela LyonsW13.2 %Kdgpyo65.0-15.0The [facility] CenterComment on above: Performed By: #### MADELYN #### [facility] [address] [place] [address] Dr. Rosangela Zhang #8.55 103/ulCritically high1.40-6.50The [facility] Comment on above:Performed By: #### MADELYN #### [facility] [address] [place] [address] Dr. Rosangela Zhang %90.0 %Critically high43.0-75.0The [facility] CenterComment on above:Performed By: #### MADELYN #### [facility] [address] [place] [address] Dr. Rosangela ArteagaBC9.5 103/ulNormal4.0-11.0The [facility] CenterComment on above: Performed By: #### MADELYN #### [facility] [address] [place] [address] Dr. Rosangela Hewitt BLOODon 54-37-1208Lqavbauhhxq examination of blood, cultureCulture Observations: NO GROWTH AT 5 DAYS.NormalThe [facility] CenterComment on above:Performed By: #### BLDCX1 #### [facility] [address] [place] [address] Dr. Rosangela LeCovid-19 PCR (CVDTB)on 29-43-0411RPBE-CoV-2 (COVID-19) RNA TRAM+probe Ql (Unsp spec)Not detectedNormalNOT DETECTEDThe [facility] Comment on above:Result Comment: This test is not yet approved or cleared by the [place] FDA. When there are no FDA-approved or cleared tests available, and other criteria are met, FDA can make tests available under an emergency access mechanism called an Emergency Use Authorization (EUA). The EUA for this test is supported by the [place] of Health and Human Service's (HHS's) declaration that circumstances exist to justify the emergency use of in vitro diagnostics for the detection and/or diagnosis of the virus that causes COVID- 19. This EUA will remain in effect (meaning this test can be used) for the duration of the COVID-19 declaration justifying emergency of IVDs, unless it is terminated or revoked by FDA (after which the test may no longer be used). When diagnostic testing is negative, the possibility of a false negative should be considered in the context of a patient's recent exposures and the presence of clinical signs and symptoms consistent with SARS-CoV-2.Performed By: #### CVDTBH #### [facility] [address] [place] [address] Dr. Rosangela Lewis A AND B AGon 36-80-7163QUNFBYRQN A AGNegativeNormal NEGATIVE SEE COMMENTThe [facility] CenterComment on above:Performed By: #### INFLUAB #### [facility] [address] [place] [address] Dr. Rosangela Lewis B AGNegativeNormalNEGATIVE SEE COMMENTThe [facility] CenterComment on above:Performed By: #### INFLUAB #### [facility] [address] [place] [address] Dr. Rosangela LeLACTATE/LACTIC ACIDon 26-89-7462Kxddkwp [Moles/Vol]1.2 mmol/L Normal0.4-2.0The [facility] on above:Performed By: #### LACT #### [facility] [address] [place] [address] Dr. Rosangela Elena HCG QUALon 39-61-8496LTUKQAUCR, QUALNegativeNormalNEGATIVE The [facility] CenterComment on above:Performed By: #### PREG #### [facility] [address] [place] [address] Dr. Rosangela LePROF 14(COMP METB)on 77-46-5965Qosjvja [Mass/Vol]4.0 g/dLNormal 3.4-5.0The [facility] CenterComment on above:Performed By: #### CMP #### [facility] [address] [place] [address] Dr. Rosangela LeAlbumin/Globulin [Mass ratio]1.1 {ratio}NormalThe [facility] Hospitalment on above:Performed By: #### CMP #### [facility] [address] [place] [address] Dr. Rosangela Marie [Catalytic activity/Vol]90 U/ISfnike22-866Erl [facility] on above:Performed By: #### CMP #### [facility] [address] [place] [address] Dr. Rosangela Hilario [Catalytic activity/Vol]26 U/FYmohrb99-00Mtt [facility]ment on above:Performed By: #### CMP #### [facility] [address] [place] [address] Dr. Rosangela Sosa gap [Moles/Vol]13.5 mmol/LNormalThe [facility] on above:Performed By: #### CMP #### [facility] [address] [place] [address] Dr. Rosangela Gold [Catalytic activity/Vol]20 U/LFgnsas17-42Ova [facility] on above:Performed By: #### CMP #### [facility] [address] [place] [address] Dr. Rosangela LeBilirubin [Mass/Vol]1.4 mg/dLCritically high0.2-1.0The [facility] CenterComment on above:Performed By: #### CMP #### [facility] [address] [place] [address] Dr. Rosangela LeCalcium [Mass/Vol]8.8 mg/dLNormal8.5-10.1The [facility] Comment on above:Performed By: #### CMP #### [facility] [address] [address] [address] Rosangela LeChloride [Moles/Vol]104 mmol/KGqhvlv54-280Pvm [facility] Comment on above:Performed By: #### CMP #### [facility] [address] [place] [address] Dr. Rosangela LeCO2 [Moles/Vol]25.3 mmol/MTobnwz82.0-32.0The [facility] Comment on above:Performed By: #### CMP #### [facility] [address] [address] [address] Rosangela LeCreatinine [Mass/Vol]1.11 mg/dLCritically high0.55-1.02The [facility] CenterComment on above:Performed By: #### CMP #### [facility] [address] [address] [address] Rosangela SalazarGFR-AF CANADIAN>60Normal>=60The [facility] CenterComment on above:Performed By: #### CMP #### [facility] [address] [place] [address] Dr. Rosangela SalazarGFR-NON AF CANADIAN>60Normal>=60The [facility] CenterComment on above:Performed By: #### CMP #### [facility] [address] [place] [address] Dr. Rosangela LeGlobulin (S) [Mass/Vol]3.6 g/dLNormalThe [facility] CenterComment on above:Performed By: #### CMP #### [facility] [address] [place] [address] Dr. Rosangela LeGlucose [Mass/Vol]107 mg/dLCritically ayni14-435Djf [facility] CenterComment on above:Performed By: #### CMP #### [facility] [address] [address] [address] Rosangela LePotassium [Moles/Vol]3.8 mmol/LNormal3.5-5.1[facility] Comment on above:Performed By: #### CMP #### [facility] [address] [address] [address] Rosangela LeProtein [Mass/Vol]7.6 g/dLNormal6.4-8.2[facility] Comment on above:Performed By: #### CMP #### [facility] [address] [place] [address] Dr. Rosangela LeSodium [Moles/Vol]139 mmol/PLbiicl596-330SndWayne Hospital Comment on above:Performed By: #### CMP #### [facility] [address] [address] [address] Rosangela LeUrea nitrogen [Mass/Vol]11.0 mg/dLNormal7.0-18.0The [facility] CenterComment on above:Performed By: #### CMP #### [facility] [address] [place] [address] Dr. Rosangela Moreno nitrogen/Creatinine [Mass ratio]9.9 mg/mgNormalThe [facility] CenterComment on above:Performed By: #### CMP #### [facility] [address] [place] [address] Dr. Rosangela LeSTREPT SCREENon 17-37-4886DXZPD SCREEN APositiveAbnormalNEGATIVE The [facility] CenterComment on above:Performed By: #### SSCRN #### [facility] [address] [place] [address] Dr. Rosangela LeSYMPTOMATIC COVID-19 ANTIGENon 30-80-1666TRF StatementSEE BELOW NormalThe [facility] CenterComment on above:Result Comment: This test has not been FDA cleared or approved, but has been authorized by the FDA under an Emergency Use Authorization (EUA) for use by authorized laboratories certified under CLIA that meet the requirements to perform moderate or high complexity testing. This test has been authorized only for the detection of proteins from SARS-CoV-2, not for any other viruses or pathogens. The emergency use of this test is authorized for the duration of the declaration that circumstances exist justifying the authorization of emergency use of in vitro diagnostic tests for detection and/or diagnosis of Covid-19 under section 564(b)(1) of the Act, 21 U.S.C. 360bbb-3(b)(1), unless the declaration is terminated or authorization is revoked sooner.Performed By: #### CVDAGS #### [facility] [address] [place] [address] Dr. Rosangela Rasmussen-CoV-2 (COVID-19) RNA TRAM+probe Ql (Unsp spec)NegativeNormal NEGATIVEThe [facility] CenterComment on above:Performed By: #### CVDAGS #### [facility] [address] [place] [address] Dr. Rosangela Kemp renal BIon 70-25-3335VC renal [place] [address] Ultrasound Report Signed Patient: Jade Morris MR#: [id number] : 2000 Acct:[id number] Age/Sex: 22 / F ADM Date: 10/09/22 Loc: Room: Type: [facility] Attending Dr: Lelo Patrick MD Ordering Provider: CHIKA Chavez Date of Service: 10/09/22 US/US renal BI: elevated DHEA;Elevated DHEA Copies to: CHIKA Chavez US renal BI 10/09/2022 4:13 PM SIGNS AND SYMPTOMS: elevated DHEA;Elevated DHEA COMPARISON: None. FINDINGS: Right kidney measures 11.06 cm x 4.29 cm x 5.72 cm . No hydronephrosis or mass. Left kidney measures 11.88 cm x 4.83 cm x 5.7 cm . No hydronephrosis or mass. The urinary bladder is morphologically normal. No free fluid is seen in the pelvis. Before voiding, the bladder measures 6.73 cm x 5.5 cm x 7.89 cm , which corresponds to an estimated volume of 152.92 mL . Bilateral ureteral jets are visualized. US/US renal BI IMPRESSION: No hydronephrosis or mass. Impression dictated by: Donovan Huffman M.D.10/09/2022 4:53 PM Dictation Location: [address] [place] [address] Tech: Radha Arauz Transcribed By: BECK 10/09/221652 Dictated By: Donovan Huffman II, MD 10/09/221651 Signed By: 10/09/221652[facility] Vital Signs Date TimeVital SignValuePerforming AwdpbwxigTkvxqwvt84-73-5984 12:38-0400Hourly RoundingPadejank ABY [address]05-15-2023 12:38-0400 Promise to ReturnPadejank ABY [address] [place], [place] 150[address]105-15-2023 12:00-0400Heart rate86 /minPatrick ABY [address] [place], [place] 1508105-15-2023 12:00-7584EjJ3% (BldA) [Mass fraction]100 %Patric ABY [address] [place], [place] 1508105-15-2023 12:00-0400 Respiratory rate17 /minPatrick ABY [address] [place], [place] 1508105-15-2023 11:59-0400 Diastolic blood kmmhktuw90 mm[Hg]Patric BADILLO [address] [place], [place] [address]8105-15-2023 11:59-0400Mean blood bgoarzqb49 mm[Hg]Patric BADILLO [address] [place], [place] [address]105-15-2023 11:59-0400 Systolic blood xamfsajv439 mm[Hg]Patric BADILLO [address] [place], [place] [address]105-15-2023 11:59-0400Body hazyroborut79.88 [degF]Patric BADILLO [address] [place], [place] 9754005-15-2023 11:11-0400 Hourly RoundingArmandok ABY [address] [place], [place] 9754005-15-2023 11:11-0400 Promise to ReturnPatrick ABY [address] [place], [place] 9754005-15-2023 11:00-0400Blood Pressure LocationPatrick ABY [address] [place], [place] 9754005-15-2023 10:23-0400 Hourly RoundingPatric BADILLO [address] [place], [place] 9754005-15-2023 10:23-0400 Promise to ReturnPadejank ABY [address] [place], [place] 9754005-15-2023 08:00-0400Body qcjybqjavye24.06 [degF]Patric BADILLO [address] [place], [place] 9[address]005-15-2023 07:47-0400Heart rate90 /minArmandok ABY [address] [place], [place] 9754005-15-2023 07:47-6366LuE9% (BldA) [Mass fraction]100 %Patric BADILLO [address] [place], [place] [address]105-15-2023 07:46-0400 Diastolic blood pcbzxyie26 mm[Hg]Patric BADILLO [address] [place], [place] 9[address]005-15-2023 07:46-0400Mean blood pkussvsr320 mm[Hg]Patric CHERRYSLIN [address] [place], [place] [address]005-15-2023 07:46-0400 Systolic blood vpbjdran510 mm[Hg]Patric CHERRYSLIN [address] [place], [place] 9754005-15-2023 07:00-0400 Respiratory rate18 /minPatrick ABY [address] [place], [place] 9[address]005-15-2023 00:58-0400Blood Pressure LocationPadejank ABY [address] [place], [place] 9754005-15-2023 00:58-0400Body mnghrqztyzy89.34 [degF]Patric BADILLO [address] [place], [place] 9754005-15-2023 00:58-0400 Diastolic blood wryajmgu00 mm[Hg]Patric BADILLO [address] [place], [place] 9[address]005-15-2023 00:58-0400Heart rate85 /minPatrick ABY [address] [place], [place] 9[address]005-15-2023 00:58-0400Mean blood grinvmel94 mm[Hg]Patric BADILLO [address] [place], [place] 9[address]005-15-2023 00:58-0400 Respiratory rate19 /minPadejank ABY [address] [place], [place] [address]005-15-2023 00:58-0352DaO9% (BldA) [Mass fraction]97 %Patric BADILLO [address]05-15-2023 00:58-0400 Systolic blood xjbfcdci581 mm[Hg]Patric BADILLO [address] [place], [place] 9754005-14-2023 20:34-0400Mean blood mknafzwz97 mm[Hg]Patric BADILLO [address] [place], [place] 9[address]005-14-2023 18:57-0400Mean blood fgjtmoym42 mm[Hg]Patric BADILLO [address] [place], [place] [address]005-14-2023 06:30-0400 Respiratory rate30 /minPatrick ABY [facility]05-14-2023 06:04-0400Mean blood gglntpyk54 mm[Hg]Patric BADILLO [facility]05-14-2023 06:04-0400 Respiratory rate16 /minPatrick ABY [facility]05-14-2023 05:15-0400 Respiratory rate17 /minPatrick ABY [address] [place], [place] [address]-14-2023 01:22-0400Heart obuh194 /minPatrick ABY [address] [place], [place] [address]105-13-2023 23:56-0400Heart wreb883 /minPatrick ABY [address] [place] [address] Encounters Encounter DateEncounter TypeCare ProviderFacilityStart: 04-30-2023 End: 15-61-1117pbsgveyittCescj KunsFacility:[facility] Start: 04-05-2023 End: 96-96-4008jeqdhqvmkrGbvmcox OJUKWUFacility:FTMCStart: 04-04-2023 End: 12-86-5049BjqntlnwgfrPhhuopo Gus BADILLO [address] [place] [address] Start: 02-10-2023 End: 59-13-1162qkpqacsowoYW DAY MARKER .Facility:N4Tpcnw: 10-09-2022 End: 96-72-9599gxtdovkbmrLstoke P JonesFacility:[facility] Centertart: 10-09-2022 End: 60-78-9429inbvvheiyxCP Brett Kuns Work Phone: [facility] Work Phone: Start: 10-09-2022 End: 41-49-8864Nyorvvj encounter procedureDO Moiz Diaz Work Phone: [facility] [place] Procedures DateProcedureProcedure DetailPerforming ClinicianStart: 10-09-2022 Ultrasonography of bilateral kidneysDO Moiz Diaz Work Phone: Start: 20-36-4265Bfvbspic sectionPauniversity of louisville hospitalyessenia BADILLO H/O: sectionStatus post deliveryDO Moiz Diaz Work Phone: Tonsillectomy and adenoidectomyPauc [facility] ABY Immunizations Immunization DateImmunizationNotesCare JfcyyzvrCmytzmsq65-26-7165amvyjjn toxoid, reduced diphtheria toxoid, and acellular pertussis vaccine, [facility] Payers DatePayer CategoryPayerPolicy [id number] Health [id number] Health [id number] ql2cpyt7-0ps9-2am4-6mm9-t20es22gm025NksxukwUNOA/HFA/FAP [id number] Social History DateTypeDetailFacilityTobao smoking status NHISUnknown if ever smokedChillicothe Va Medical Center CtrStart: 64-43-7150Chq Assigned At [facility] Campustart: 17-03-3743Wljlgkj smoking status NHISNever smoked tobacco (finding)[facility] HospitalTobacco smoking statusNo Smoking Status [facility]ex Assigned At [facility] Goals DatePatient GoalDesired Activity/State Functional Status RenuIoainskfnsWomxreTjuhsxuq32-59-4332Eorsdpayqr StatusS[facility]2023[facility]al [facility] Evaluation + Plan note 04-06-2023 Note Date & GldpKntjJxopssfo73-75-1665 Evaluation + Plan noteExtracted from: Title:Discharge NoteAuthor:Charles GILLIAM, madDate:04/06/23 Stable Discharge To, Anticipated II - Home independently Discharged to - Home independently Transported by, Anticipated - Family Discharge Diet(s): Calorie Controlled- 1800 Calorie Diet (04/06/23 10:46:00) Prescriptions No active prescription medications Home multivitamin, 1 tab, Oral, Daily With When Contact Information MOIZ DIAZ In [address] [place] [address] [facility] (1) Additional Instructions: Diarrhea, Adult Dehydration, Adult Extracted from:Title:Admission H & PAuthor:EMELY GILLIAM, Juan FanefoDate:04/05/23 23-year-old female with no significant past medical history presented with complaints of generalized abdominal pain of 2 days duration associated with multiple episodes of diarrhea, fever and is being admitted with acute kidney injury secondary to acute viral diarrhea, dehydration, abdominal pain, fever. 1. RADHA (acute kidney injury) (N17.9: Acute kidney failure, unspecified) Acute kidney injury secondary to ATN from gastrointestinal loss. Admit to regular medical floor. Started patient on IV fluid. Avoid nephrotoxic drugs. Repeat BMP in AM. Ordered: Initial Hospital Care/Day Moderate 55 Minutes 32631 2. Acute diarrhea (R19.7: Diarrhea, unspecified) Acute diarrheal illness suspect viral illness. Send COVID antigen. Send C. difficile test and if negative we will start patient on Imodium as needed. Ordered: magnesium sulfate + Generic Diluent 50 mL, 2 gram = 50 mL, IV Piggyback, Once, Stop date 04/05/23 9:00:00 EDT, Routine, Start date 04/05/23 9:00:00 EDT, 25 mL/hr, Infuse over 2 hour(s), 04/05/23 8:46:00 EDT Clostridium Difficile PCR Enteric Panel by PCR Initial Hospital Care/Day Moderate 55 Minutes 13719 3. Dehydration (E86.0: Dehydration) Secondary to gastrointestinal loss. Ordered: Initial Hospital Care/Day Moderate 55 Minutes 44664 4. Sinus tachycardia (R00.0: Tachycardia, unspecified) Secondary to dehydration. Improved. Continue on IV fluid. Ordered: Initial Hospital Care/Day Moderate 55 Minutes 41618 5. Abdominal pain (R10.9: Unspecified abdominal pain) Secondary to above. Resolved. Ordered: Initial Hospital Care/Day Moderate 55 Minutes 54074 6. Fever (R50.9: Fever, unspecified) Prior to presentation to hospital. Resolved. Ordered: Initial Hospital Care/Day Moderate 55 Minutes 71860 7. Obese (E66.9: Obesity, unspecified) Recommend therapeutic lifestyle modification changes. 8. On deep vein thrombosis (DVT) prophylaxis (Z79.899: Other jail (current) drug therapy) Early ambulation. Disposition: The patient will be admitted under observation status and will require less than 2 midnight hospital stay for the treatment of above acute kidney injury, diarrhea illness, dehydration. I discussed the diagnosis and plan of care with the patient and significant other at the bedside. Moderate level of MDM based on addressing above issues. This documentation was transcribed using voice recognition software. Several attempts were made to ensure accuracy. However inadvertent computerized national account executive errors may be present. Kelly Han. Hospitalist. Orders: acetaminophen, 650 mg = 2 tab(s), Tab, Oral, q6hr PRN Pain, Routine, Start date 04/05/23 8:48:00 EDT, 04/05/23 8:48:00 EDT Al hydroxide/Mg hydroxide/simethicone, 30 mL, Susp-Oral, Oral, q6hr PRN Indigestion, Routine, Startdate 04/05/23 8:48:00 EDT Dextrose 5% with 0.45% NaCl and KCl 20 mEq/l 1,000 mL, 1,000 mL, IV, 100 mL/hr, for 2 dose(s), Stopdate 04/06/23 4:47:00 EDT, Routine, Start date 04/05/23 8:48:00 EDT, 10 hour(s), Total volume (mL):1,000, 141 kg, 2.52, m2 diphenhydrAMINE, 25 mg = 1 cap(s), Cap, Oral, q6hr PRN Itching, Routine, Start date 04/05/23 8:48:00 EDT, 04/05/23 8:48:00 EDT hydrALAZINE, 10 mg = 0.5 mL, Injection, IV Push, q6hr PRN Other (see comment), Routine, Start date 04/05/23 8:48:00 EDT, 04/05/23 8:48:00 EDT magnesium hydroxide, 30 mL, Susp-Oral, Oral, q6hr PRN Constipation, Routine, Start date 04/05/23 8:48:00 EDT morphine, 2 mg = 1 mL, Injection, IV Push, q4hr PRN Pain for 5 day(s), Stop date 04/10/23 8:47:00 EDT, Routine, Start date 04/05/23 8:48:00 EDT, 04/05/23 8:48:00 EDT ondansetron, 4 mg = 2 mL, Injection, IV Push, q6hr PRN Nausea, Routine, Start date 04/05/23 8:48:00EDT, 04/05/23 8:48:00 EDT Basic Metabolic Panel Cardiac Monitoring Oxygen Protocol Place in Status Pulse Oximetry Rapid COVID Antigen ([facility]) Regular Diet Resuscitation Status - Full Up ad Marisabel Vital Signs Weight Extracted from:Title:ED NoteAuthor:Larisa Loera DO ADate:04/05/23 Acute diarrhea (R19.7: Diarr hea, unspecified) RADHA (acute kidney injury) (N17.9: Acute kidney failure, unspecified) Dehydration (E86.0: Dehydration) Sinus tachycardia (R00.0: Tachycardia, unspecified) Orders: ketorolac, 30 mg = 1 mL, Injection, IV Push, Once, Stop date 04/04/23 23:58:00 EDT, STAT, Start date 04/04/23 23:58:00 EDT, 04/04/23 23:58:00 EDT loperamide, 4 mg = 2 tab(s), Tab, Oral, Once, Stop date 04/05/23 1:41:00 EDT, STAT, Start date 04/05/23 1:41:00 EDT, 04/05/23 1:41:00 EDT magnesium sulfate + Generic Diluent 50 mL, 2 gram = 50 mL, IV Piggyback, Once, Stop date 04/04/23 23:58:00 EDT, STAT, Start date 04/04/23 23:58:00 EDT, 25 mL/hr, Infuse over 2 hour(s), 04/04/23 23:58:00 EDT metoprolol, 2.5 mg = 2.5 mL, Injection, IV Push, Once, Stop date 04/05/23 1:14:00 EDT, STAT, Start date 04/05/23 1:14:00 EDT, 04/05/23 1:14:00 EDT Sodium Chloride 0.9% intravenous solution, 1,000 mL, Soln-IV, IV, Once, Stop date 04/04/23 23:58:00EDT, STAT, Start date 04/04/23 23:58:00 EDT, Infuse over 61, minute(s) Sodium Chloride 0.9% intravenous solution 1,000 mL, 1,000 mL, IV, 983.61 mL/hr, for 30 day(s), Stopdate 05/05/23 2:49:00 EDT, STAT, Start date 04/05/23 2:50:00 EDT, 61 minute(s), Total volume (mL): 1,000, 141 kg, 2.52, m2 Sodium Chloride 0.9% intravenous solution 1,000 mL, 1,000 mL, IV, 983.61 mL/hr, for 30 day(s), Stopdate 05/05/23 0:00:00 EDT, STAT, Start date 04/05/23 0:01:00 EDT, 61 minute(s), Total volume (mL): 1,000 Add on Test Add on Test Automated Diff Basic Metabolic Panel Beta hCG Qual Blood Gas Marcos CBC w/ Auto Diff CT Abdomen/Pelvis w/ Contrast Drug Screen Urine ED Physician consult Hospitalist for continued care eGFR Extra Blue Tube Extra SST Tube Hepatic Function Panel Lactic Acid Lipase Level Magnesium Level Troponin 0 Hr. TSH With T4fr Reflex UA With Cult Reflex XR Chest Single View [facility] Discharge summary note 04-06-2023 Note Date & [id number] NoteAdmission and Discharge Information Admitting Physician - Patric BADILLO DO Admitting Diagnoses: Discharge Diagnoses 1. RADHA (acute kidney injury), 04/05/2023 2. Acute diarrhea, 04/05/2023 3. Dehydration, 04/05/2023 4. Sinus tachycardia, 04/05/2023 5. Abdominal pain, 04/05/2023 6. Fever, 04/05/2023 7. Obese, 04/05/2023 8. On deep vein thrombosis (DVT) prophylaxis, 04/05/2023 Abdominal pain, 04/04/2023 Diarrhea, 04/04/2023 Nausea and vomiting, 04/04/2023 Palpitations, 04/04/2023 Shortness of breath, 04/04/2023 Tachycardia, 04/04/2023 Procedure History section (11/11/2019), Tonsillectomy and adenoidectomy. Hospital Course This is a 23-year-old female with a medical history significant for obesity, who was admitted for dehydration, acute kidney injury. Was found to have diarrhea. Patient informs me that she had 3 days of diarrhea and did not take any antidiarrheals. Panel was negative. C. difficile was obtained. COVID-negative. Day of discharge she was vitally hemodynamically clinically stable. Her kidney function had improved. She was tolerating diet. And diarrhea had self resolved. - On day of discharge patient was vitally, hemodynamically clinically stable. Patient verbalized understanding and agreement with above. A good deepika effort was made to discuss the above with the patient. Teach back method was used when discussing plan and need for referrals with patients. - Follow Up - Patient is to follow-up with PCP for transition of care - Discharge Instructions: Given Discharge Medications: Reviewed Discharge Status: Improved Discharge disposition: Home Physical Exam Vitals & Measurements T: 36.7 ?C(Oral) TMIN: 36.3 ?C(Oral) TMAX: 36.9 ?C(Oral) HR: 90(Monitored) RR: 18 BP: 132/84 SpO2: 100% HT: 162.56 cm WT: 142.9 kg General: alert, no acute distress Psychiatric: cooperative, affect appropriate for age Neurological: awake, alert, oriented, speech normal Cardiovascular: no overt murmurs Respiratory: no adventitious breath sounds Gastrointestinal: soft NT, NG, NR Extremities: no rash Laboratory Results Automated Diff (04/05/2023) Neutro Auto - 88.6 % Lymph Auto - 9.9 % Cass Auto - 1.0 % Eos Auto - 0.3 % Basophil Auto - 0.2 % Neutro Absolute - 4.5 E9/L Lymph Absolute - 0.5 E9/L Cass Absolute - 0.1 E9/L Eos Absolute - 0.0 E9/L Basophil Absolute - 0.0 E9/L Beta hCG Qual (04/05/2023) Beta hCG Ql - NEGATIVE1 Blood Gas Marcos (04/05/2023) pH Marcos - 7.357 pCO2 Marcos - 39.9 mmHg Sample Type - Venous Draw Sample Site - OTHER FIO2 BG - 21.0 Allens Test - Not Applicable Drawn by - [facility] (04/06/2023) Glucose Lvl - 101 mg/dL BUN - 13 mg/dL Creatinine - 1.1 mg/dL BUN/Creat Ratio - 12 Sodium Lvl - 139 mmol/L Potassium Lvl - 3.7 mmol/L Chloride - 110 mmol/L CO2 - 25 mmol/L AGAP - 8 mEq/L Calcium Lvl - 8.2 mg/dL BMP (04/05/2023) Glucose Lvl - 116 mg/dL BUN - 14 mg/dL Creatinine - 1.5 mg/dL BUN/Creat Ratio - 9 Sodium Lvl - 139 mmol/L Potassium Lvl - 3.6 mmol/L Chloride - 110 mmol/L CO2 - 22 mmol/L AGAP - 11 mEq/L Calcium Lvl - 8.8 mg/dL CBC w/ Auto Diff (04/05/2023) WBC - 5.1 E9/L RBC - 5.0 E12/L Hgb - 14.0 gm/dL Hct - 41.0 % MCV - 81.6 fL MCH - 27.8 pg MCHC - 34.1 gm/dL RDW - 14.3 % Platelet - 235.0 E9/L MPV - 7.0 fL COVID Rapid Antigen ([facility]) (04/05/2023) Rapid COVID Ag - Not Detected Rapid COV Int NEG Ctl - Pass Rapid COV Int POS Ctl - Pass First Test - Unknown Employed in Healthcare - NO Symptomatic as defined by CDC - YES Hospitalized? - NO ICU - NO Resides in a Congregate Care Setting - NO ? - NO Drug Screen Urine (04/05/2023) U Amph Scr - Negative U Dorcas Scr - Negative U Benzodia Scr - Negative U Cannab Scr - Negative U Cocaine Scr - Negative U Opiate Scr - NEG1 U PCP Scr - Negative eGFR (04/06/2023) eGFR - 72 mL/min/1.73 m2 Enteric Panel by PCR (04/05/2023) Campylobacter group - Not Detected Salmonella species - Not Detected Shigella species - Not Detected Shiga Toxin 1 - Not Detected Shiga Toxin 2 - Not Detected Shiga Tox Interp - Negative for Shiga Toxin producing E. coli Vibrio Group - Not Detected Rotavirus A - Not Detected Norovirus GI/GII - Not Detected Yersinia enterocolitica - Not Detected Hepatic Function Panel (04/05/2023) Alk Phos - 65 Int._Unit/L ALT - 19 Int._Unit/L AST - 20 Int._Unit/L Total Protein - 6.8 gm/dL Albumin Lvl - 3.7 gm/dL Globulin - 3.1 gm/dL A/G Ratio - 1.2 Bili Total - 1.1 mg/dL Bili Direct - 0.2 mg/dL Bili Indirect - 0.9 mg/dL Lactic Acid (04/05/2023) Lactic Acid Lvl - 1.2 mmol/L Lipase Level (04/05/2023) Lipase Lvl - 25 unit/L Magnesium Level (04/05/2023) Magnesium - 1.6 mg/dL Troponin 0 Hr. (04/05/2023) Troponin - 6.80 pg/mL TSH With T4fr Reflex (04/05/2023) TSH - 1.91 mcIU/mL UA With Cult Reflex (04/05/2023) UA Spec Desc - Clean Catch UA Color - Yellow2 UA Clarit (more content not included)...[facility] InstituteComment on above:Result Comment: Electronically Signed By: Charles GILLIAM, Shante\.br\Date and Time Signed: 04/06/23 10:48 EDT Hospital Discharge instructions 04-06-2023 Note Date & [id number] Hospital Discharge instructions Patient Education 04/06/2023 08:45:32 Diarrhea, Adult Diarrhea, Adult Diarrhea is frequent loose and watery bowel movements. Diarrhea can make you feel weak and cause you to become dehydrated. Dehydration can make you tired and thirsty, cause you to have a dry mouth, and decrease how often you urinate. Diarrhea typically lasts 2 3 days. However, it can last longer if it is a sign of something more serious. It is important to treat your diarrhea as told by your health care provider. Follow these instructions at home: Eating and drinking Follow these recommendations as told by your health care provider: Take an oral rehydration solution (ORS). This is an iadd-vza-xghqqqb medicine that helps return your body to its normal balance of nutrients and water. It is found at pharmacies and retail stores. Drink plenty of fluids, such as water, ice chips, diluted fruit juice, and low- calorie sports drinks. You can drink milk also, if desired. Avoid drinking fluids that contain a lot of sugar or caffeine, such as energy drinks, sports drinks, and soda. Eat bland, oeon-pi-qbkhcq foods in small amounts as you are able. These foods include bananas, applesauce, rice, lean meats, toast, and crackers. Avoid alcohol. Avoid spicy or fatty foods. Medicines Take duyu-wap-guqhelj and prescription medicines only as told by your health care provider. If you were prescribed an antibiotic medicine, take it as told by your health care provider. Do notstop using the antibiotic even if you start to feel better. General instructions Wash your hands often using soap and water. If soap and water are not available, use a hand watch and clock repair clerk. Others in the household should wash their hands as well. Hands should be washed: ?After using the toilet or changing a diaper. ?Before preparing, cooking, or serving food. ?While caring for a sick person or while visiting someone in a hospital. Drink enough fluid to keep your urine pale yellow. Rest at home while you recover. Watch your condition for any changes. Take a warm bath to relieve any burning or pain from frequent diarrhea episodes. Keep all follow-up visits as told by your health care provider. This is important. Contact a health care provider if: You have a fever. Your diarrhea gets worse. You have new symptoms. You cannot keep fluids down. You feel light-headed or dizzy. You have a headache. You have muscle cramps. Get help right away if: You have chest pain. You feel extremely weak or you faint. You have bloody or black stools or stools that look like tar. You have severe pain, cramping, or bloating in your abdomen. You have trouble breathing or you are breathing very quickly. Your heart is beating very quickly. Your skin feels cold and clammy. You feel confused. You have signs of dehydration, such as: ?Dark urine, very little urine, or no urine. ?Cracked lips. ?Dry mouth. ?Sunken eyes. ?Sleepiness. ?Weakness. Summary Diarrhea is frequent loose and sometimes watery bowel movements. Diarrhea can make you feel weak and cause you to become dehydrated. Drink enough fluids to keep your urine pale yellow. Make sure that you wash your hands after using the toilet. If soap and water are not available, usehand watch and clock repair clerk. Contact a health care provider if your diarrhea gets worse or you have new symptoms. Get help right away if you have signs of dehydration. This information is not intended to replace advice given to you by your health care provider. Make sure you discuss any questions you have with your health care provider. Document Revised: 05/21/2022 Document Reviewed: 05/21/2022 [employer] Patient Education 2022 [employer]. 04/06/2023 08:45:10 Dehydration, Adult Dehydration, Adult Dehydration is a condition in which there is not enough water or other fluids in the body. This happens when a person loses more fluids than he or she takes in. Important organs, such as the kidneys,brain, and heart, cannot function without a proper amount of fluids. Any loss of fluids from the body can lead to dehydration. Dehydration can be mild, moderate, or severe. It should be treated right away to prevent it from becoming severe. What are the causes? Dehydration may be caused by: Conditions that cause loss of water or other fluids, such as diarrhea, vomiting, or sweating or urinating a lot. Not drinking enough fluids, especially when you are ill or doing activities that require a lot of energy. Other illnesses and conditions, such as fever or infection. Certain medicines, such as medicines that remove excess fluid from the body (diuretics). Lack of safe drinking water. Not being able to get enough water and food. What increases the risk? The following factors may make you more likely to develop this condition: Having a long-term (chronic) illness that has not been treated properly, such as diabetes, heart disease, or kidney disease. Being 65 years of age or older. Having a disability. Living in a place that is high in altitude, where thinner, short goods drier air causes more fluid loss. Doing exercises that put stress on your body for a long time (endurance sports). What are the signs or symptoms? Symptoms of dehydration depend on how severe it is. Mild or moderate dehydration Thirst. Dry lips or dry mouth. Dizziness or light-headedness, especially when standing up from a seated position. Muscle cramps. Dark urine. Urine may be the color of tea. Less urine or tears produced than usual. Headache. Severe dehydration Changes in skin. Your skin may be cold and clammy, blotchy, or pale. Your skin also may not return to normal after being lightly pinched and released. Little or no tears, urine, or sweat. Changes in vital signs, such as rapid breathing and low blood pressure. Your pulse may be weak or may be faster than 100 beats a minute when you are sitting still. Other changes, such as: ?Feeling very thirsty. ?Sunken eyes. ?Cold hands and feet. ?Confusion. ?Being very tired (lethargic) or having trouble waking from sleep. ?Short-term weight loss. ?Loss of consciousness. How is this diagnosed? This condition is diagnosed based on your symptoms and a physical exam. You may have blood and urine tests to help confirm the diagnosis. How is this treated? Treatment for this condition depends on how severe it is. Treatment should be started right away. Do not wait until dehydration becomes severe. Severe dehydration is an emergency and needs to be treated in a hospital. Mild or moderate dehydration can be treated at home. You may be asked to: ?Drink more fluids. ?Drink an oral rehydration solution (ORS). This drink helps restore proper amounts of fluids and salts and minerals in the blood (electrolytes). Severe dehydration can be treated: ?With IV fluids. ?By correcting abnormal levels of electrolytes. This is often done by giving electrolytes through atube that is passed through your nose and into your stomach (nasogastric tube, or NG tube). ?By treating the underlying cause of dehydration. Follow these instructions at home: Oral rehydration solution If told by your health care provider, drink an ORS: Make an ORS by following instructions on the package. Start by drinking small amounts, about cup (120 mL) every 5 10 minutes. Slowly increase how much you drink until you have taken the amount recommended by your health care provider. Eating and drinking Drink enough clear fluid to keep your urine pale yellow. If you were told to drink an ORS, finish the ORS first and then start slowly drinking other clear fluids. Drink fluids such as: ?Water. Do not drink only water. Doing that can lead to hyponatremia, which is having too little salt (sodium) in the body. ?Water from ice chips you suck on. ?Fruit juice that you have added water to (diluted fruit juice). ?Low-calorie sports drinks. Eat foods that contain a healthy balance of electrolytes, such as bananas, oranges, potatoes, tomatoes, and spinach. Do not drink alcohol. Avoid the following: ?Drinks that contain a lot of sugar. These include high-calorie sports drinks, fruit juice that is not diluted, and soda. ?Caffeine. ?Foods that are greasy or contain a lot of fat or sugar. General instructions Take iikd-tgi-psylquf and prescription medicines only as told by your health care provider. Do not take sodium tablets. Doing that can lead to having too much sodium in the body (hypernatremia). Return to your normal activities as told by your health care provider. Ask your health care provider what activities are safe for you. Keep all follow-up visits as told by your health care provider. This is important. Contact a health care provider if: You have muscle cramps, pain, or discomfort, such as: ?Pain in your abdomen and the pain gets worse or stays in one area (localizes). ?Stiff neck. You have a rash. You are more irritable than usual. You are sleepier or have a harder time waking than usual. You feel weak or dizzy. You feel very thirsty. Get help right away if you have: Any symptoms of severe dehydration. Symptoms of vomiting, such as: ?You cannot eat or drink without vomiting. ?Vomiting gets worse or does not go away. ?Vomit includes blood or green matter (bile). Symptoms that get worse with treatment. A fever. A severe headache. Problems with urination or bowel movements, such as: ?Diarrhea that gets worse or does not go away. ?Blood in your stool (feces). This may cause stool to look black and tarry. ?Not urinating, or urinating only a small amount of very dark urine, within 6 8 hours. Trouble breathing. These symptoms may represent a serious problem that is an emergency. Do not wait to see if the symptoms will go away. Get medical help right away. Call your local emergency services (911 in the [place] Do not drive yourself to the hospital. Summary Dehydration is a condition in which there is not enough water or other fluids in the body. This happens when a person loses more fluids than he or she takes in. Treatment for this condition depends on how severe it is. Treatment should be started right away. Do not wait until dehydration becomes severe. Drink enough clear fluid to keep your urine pale yellow. If you were told to drink an oral rehydration solution (ORS), finish the ORS first and then start slowly drinking other clear fluids. Take lqoz-lgz-tohvbcf and prescription medicines only as told by your health care provider. Get help right away if you have any symptoms of severe dehydration. This information is not intended to replace advice given to you by your health care provider. Make sure you discuss any questions you have with your health care provider. Document Revised: 06/21/2020 Document Reviewed: 06/21/2020 [employer] Patient Education 2022 [employer]. Follow Up Care 04/04/2023 23:55:13 With:MOIZ DIAZ Address: [address] [place], [place] [id number]- Business (1) When: Unknown Comments:The office will contact you with an appointment. Thank you! [facility] History and physical note 04-05-2023 Note Date & [id number] NoteChief Complaint Pt in ED via squad c/o abdominal pain since thursday afternoon with diarrhea. Dewayne @ 2300 was shaking and having SOB, nausea and vomited once History of Present Illness 23-year-old female with no significant past medical history presented to the emergency room with complaints of generalized abdominal pain of about 2 days duration associated with fever. According to the patient she was in her usual state of health until about 2 days ago when she developedgeneralized abdominal pain with low-grade fever. Her temperature was 101.7 Fahrenheit. Abdominal pain was also associated with multiple episodes of diarrhea stool every 5 to 10 minutes. This was associated with mild nausea and vomiting x1 and also some cough.. Because of the multiple episodes of diarrhea she was shaking and was getting weak hence the trip to the emergency room. In the emergency room she was treated with IV fluid and has since improved. Has not had any diarrhea since then. Abdominal pain is gone. She denies coming in contact with anybody that is sick. She denies getting COVID vaccination. Patient received antibiotics about 4 to 6 months ago for strep throat. Review of Systems Constitutional: mild fever, no chills, no sweats, no weakness Skin: no Jaundice, no rash, no lesions, nopetechiae ENMT: no ear pain, no sore throat, no congestion, no hoarseness Respiratory: no shortness of breath, no cough, no orthopnea, no wheezing Cardiovascular: no chest pain, no palpitations, no edema Gastrointestinal: mild nausea, mild vomiting, severe diarrhea, no GI bleeding Genitourinary: no dysuria, no hematuria, no discharge, no pain Musculoskeletal: no back pain, no trauma Neurologic: no headache, no dizziness, no numbness, no weakness Psychiatric: no sleeping problems, no irritability, no mood swings/depression. Heme/Lymph: no bleeding tendency, no bruising tendency, no petechiae, no swollen nodes Allergy/Immunologic: no seasonal allergies, no food allergies, no recurrent infections, no impairedimmunity Additional ROS info: Except as noted in the above Review of Systems and in the History of Present Illness all other systems have been reviewed and are negative or noncontributory. Scoring Leon Fall Risk Score: 35 (04/05/23) Physical Exam Vitals & Measurements T: 37.1 ?C(Oral) HR: 106(Monitored) RR: 30 BP: 103/51 SpO2: 97% HT: 162.56 cm WT: 141 kg General: alert, no acute distress Skin: warm, dry Head: no trauma, normocephalic Neck: Trachea midline, no adenopathy, no tenderness Eye: normal conjunctiva, sclera clear ENMT: TM's clear, oral mucosa moist, no pharyngeal erythema or exudate Cardiovascular: regular rate and rhythm, normal peripheral perfusion Respiratory: Lungs CTA, respirations non labored Chest wall: no deformity. Gastrointestinal: soft, non distended, no tenderness, no guarding. Morbidly obese. Bowel sounds intact. Back: No tenderness, Normal ROM, Normal alignment. Extremities: no deformity, no trauma Neurological: oriented x 4, LOC appropriate for age, CN II-XII intact, motor strength equal & normal bilaterally, sensation equal & normal bilaterally, speech normal Psychiatric: cooperative, affect appropriate for age, normal judgement, normal psychiatric thoughts. Lab Results WBC: 5.1 E9/L (04/05/23 00:07:00) RBC: 5 E12/L (04/05/23 00:07:00) HGB: 14 gm/dL (04/05/23 00:07:00) Hct: 41 % (04/05/23 00:07:00) MCV: 81.6 fL (04/05/23 00:07:00) MCH: 27.8 pg (04/05/23 00:07:00) MCHC: 34.1 gm/dL (04/05/23 00:07:00) RDW: 14.3 % High (04/05/23 00:07:00) Platelet: 235 E9/L (04/05/23 00:07:00) MPV: 7 fL (04/05/23 00:07:00) Neutro Auto: 88.6 % High (04/05/23 00:07:00) Lymph Auto: 9.9 % Low (04/05/23 00:07:00) Cass Auto: 1 % Low (04/05/23 00:07:00) Eos Auto: 0.3 % (04/05/23 00:07:00) Basophil Auto: 0.2 % (04/05/23 00:07:00) Neutro Absolute: 4.5 E9/L (04/05/23 00:07:00) Lymph Absolute: 0.5 E9/L Low (04/05/23 00:07:00) Cass Absolute: 0.1 E9/L Low (04/05/23 00:07:00) Eos Absolute: 0 E9/L (04/05/23 00:07:00) Basophil Absolute: 0 E9/L (04/05/23 00:07:00) Glucose Lvl: 116 mg/dL (04/05/23 00:07:00) BUN: 14 mg/dL (04/05/23 00:07:00) Creatinine: 1.5 mg/dL High (04/05/23 00:07:00) eGFR: 50 mL/min/1.73 m2 Low (04/05/23 00:07:00) BUN/Creat Ratio: 9 Low (04/05/23 00:07:00) Sodium Lvl: 139 mmol/L (04/05/23 00:07:00) Potassium Lvl: 3.6 mmol/L (04/05/23 00:07:00) Chloride: 110 mmol/L (04/05/23 00:07:00) CO2: 22 mmol/L (04/05/23 00:07:00) AGAP: 11 mEq/L (04/05/23 00:07:00) Calcium Lvl: 8.8 mg/dL Low (04/05/23 00:07:00) Alk Phos: 65 Int._Unit/L (04/05/23 00:07:00) ALT: 19 Int._Unit/L (04/05/23 00:07:00) AST: 20 Int._Unit/L (04/05/23 00:07:00) Total Protein: 6.8 gm/dL (04/05/23 00:07:00) Albumin Lvl: 3.7 gm/dL (04/05/23 00:07:00) Globulin: 3.1 gm/dL (04/05/23 00:07:00) A/G Ratio: 1.2 (04/05/23 00:07:00) Bili Total: 1.1 mg/dL (04/05/23 00:07:00) Bili Direct: 0.2 mg/dL (04/05/23 00:07:00) Bili Indirect (more content not included)...[facility] CenterComment on above:Result Comment: Electronically Signed By: EMELY GILLIAM, Mbanefo\.br\Date and Time Signed: 04/05/23 08:50 EDT Evaluation note Note Date & TypeNoteFacilityEvaluation noteNo assessment information available [facility] Work Phone: Hospital course Narrative Note Date & TypeNoteFacilityHospital course Narrative No data available for this section [facility] Progress note Note Date & TypeNoteFacilityProgress note No data available for this section [facility] Assessments No Assessments Information Available Chief Complaint and Reason for Visit Chief Complaint E27.8 Advance Directives No Advanced Directives Records Found Advance Directive Response Recorded Date/ Time Advance Directives No March 28, 2019 6:53am Summary Purpose Family History No Family History Records FoundNo Family History Records FoundNo Family History Records Found Additional Source Comments Care Teams (unrecognized sec tion and content) Team Status: Inactive Member Role Status Dates Moiz Diaz DO Primary Care Provider Active Maik Orantes ProviderActive Team Status: Active Member Role Status Dates Moiz Diaz DO Primary Care Provider Active Goals (unrecognized section and content) Goals may be documented in a n alternate section No data available for this section INFORMATION SOURCE (unrecogn ized section and content) DATE CREATED AUTHOR 04/03/2023 [facility] DATE CREATED AUTHOR AUTHOR'S ORGANIZ ATION 05/05/2023 [facility] DATE CREATED AUTHOR AUTHOR'S ORGANIZ ATION 05/05/2023 [facility] FOR RECORDS PERTAINING TO PATIENTS WHO ARE OR HAVE BEEN ENROLLED IN A CHEMICAL DEPENDENCY/SUBSTANCEABUSE PROGRAM, SOME INFORMATION MAY BE OMITTED. This clinical summary was aggregated from multiple sources. Caution should be exercised in using it in the provision of clinical care. This summary normalizes information from multiple sources, and as a consequence, information in this document may materially change the coding, format and clinical context of patient data. In addition, data may be omitted in some cases. CLINICAL DECISIONS SHOULD BE BASED ON THE PRIMARY CLINICAL RECORDS. [employer] [facility]. provides no warranty or guarantee of the accuracy or completeness of information in this document.
[2025-11-19] MEDS: ONDANSETRON 4 MG RAPDIS TABLET SL (14:42)
--- OUTSIDE RECORDS SUMMARY | 2025-11-19 14:42 | XMS_ITS | Clinical Summary ---
Author Organization [facility] Address [address] [place] [address] Care Team Providers Care Greenhouse Manager Name Role Phone Unavailable Primary Care Provider Unavailabl e Social History Tobacco UseTypesPacks/DayYears UsedDateSmoking Tobacco: Never Assessed CommentsUnknownSex and Gender InformationValueDate RecordedSex Assigned at Not on fileLegal ZkrUouwgr43/15/2023 8:11 PM EDTGender IdentityNot on fileSexual OrientationNot on file Last Filed Vital Signs Vital SignReadingTime TakenCommentsBlood [id number]/8810/27/2022 12:00 PM EST Pulse--Temperature--Respiratory Rate--Oxygen Saturation--Inhaled Oxygen Concentration--Tmlddf329 kg (313 lb)10/27/2022 12:00 PM CZZUztfdy231 cm (5' 3 ) 10/27/2022 12:00 PM ESTBody Mass Index55.45112/28/2021 12:00 PM EST Plan of Treatment Not on file Insurance
[2025-11-19 15:05] LABS: HCG Qualitative Urine* NEGATIVE (NEGATIVE)
--- NOTE | 2025-11-19 19:29 | ED.GENADUL1 ---
HPI HPI - General Adult General Chief complaint: Nausea/Vomiting/Diarrhea Stated complaint: VOMITING, LIGHT HEADED, DIZZY, WEAK LEGS Time Seen by Provider: 11/19/25 14:23 Source: patient Mode of arrival: walk-in Limitations: no limitations History of Present Illness HPI narrative: Patient is a previous healthy 25-year-old female presenting to the emergency room for concerns of vomiting. Patient states her child had a GI illness a few days ago. She believes that she is sick with a GI on this that she has had nausea and vomiting over the last 4 hours. She denies abdominal pain. No diarrhea. No chest pain shortness of breath. No fevers or chills. Denies being . Related Data Home Medications ?Medication ?Instructions ?Recorded ?Confirmed multivitamin (Daily Multi-Vitamin 1 tab PO DAILY 11/23/24 11/19/25 tablet) Previous Rx's ?Medication ?Instructions ?Recorded ondansetron 4 mg disintegrating 4 mg PO Q8H PRN nausea and 11/19/25 tablet vomiting 5 days #10 tabs Allergies Allergy/AdvReac Type Severity Reaction Status Date / Time No Known Drug Allergies Allergy Verified 11/19/25 14:16 Review of Systems ROS Status of ROS 10 or more systems reviewed and unremarkable except as noted in history and below [facility] Surgical History (Updated 11/23/24 @ 18:28 by Brionna Kathleen) Hx of tonsillectomy ?Z90.89 - Acquired absence of other organs (ICD-10) Social History Little interest or pleasure in doing things: not at all Feeling down, depressed, or hopeless: not at all Exam Narrative Exam Narrative: CONSTITUTIONAL: Well-appearing, answering questions and following commands appropriately SKIN: Was warm and dry. EYES: Sclerae white. EARS, NOSE, THROAT: Moist oral mucosa. RESPIRATORY: Clear to auscultation bilaterally, no wheezes, crackles, or stridor, no use of accessory muscles CARDIOVASCULAR: Normal rate and regular rhythm. There is no S3, S4, murmur, rub. GASTROINTESTINAL: Abdomen is soft, nontender, and nondistended. No rebound tenderness or guarding. MUSCULOSKELETAL: No peripheral edema. NEUROLOGIC: Patient is awake and alert. Facies were symmetrical. Constitutional Vital Signs, click to edit/add: Last Vital Signs Temp 98.4 F 11/19/25 14:16 Pulse 91 H 11/19/25 14:16 Resp 18 11/19/25 14:16 BP 170/104 H 11/19/25 14:16 Pulse Ox 98 11/19/25 14:16 O2 Del Method Room Air 11/19/25 14:16 Course Vital Signs Vital signs: Vital Signs Temperature 98.4 F 11/19/25 14:16 Pulse Rate 91 H 11/19/25 14:16 Respiratory Rate 18 11/19/25 14:16 Blood Pressure 170/104 H 11/19/25 14:16 Pulse Oximetry 98 11/19/25 14:16 Oxygen Delivery Method Room Air 11/19/25 14:16 Temperature 98.4 F 11/19/25 14:16 Pulse Rate 91 H 11/19/25 14:16 Respiratory Rate 18 11/19/25 14:16 Blood Pressure 170/104 H 11/19/25 14:16 Pulse Oximetry 98 11/19/25 14:16 Oxygen Delivery Method Room Air 11/19/25 14:16 Medical Decision Making [facility] Narrative Medical decision making narrative: Patient is a 25-year-old previous healthy female presenting to the emergency department for 1 day history of nausea and vomiting. Her vital signs are significant for hypertension, otherwise within normal limits. She is afebrile and hemodynamically stable. Patient overall is well-appearing and not significantly dehydrated. Differential diagnose includes gastroenteritis. Patient's exam is not consistent with surgical etiologies of abdominal pain such as appendicitis, cholecystitis, or perforated viscus. She was given oral Zofran for symptomatic treatment POC glucose within normal limits. Urine test negative. I do believe the patient is stable for discharge. She tolerated p.o. challenge. She feels clinically improved after Zofran. They were instructed to follow up with her PCP as needed. Return precautions were given including any new or worsening symptoms. They were given a prescription for Zofran. Patient understands and agrees to the plan. FINAL IMPRESSION: #Acute nausea and vomiting DISPOSITION: Discharged home CONDITION: Good Lab Data Lab results reviewed: Yes I reviewed the patient's lab results Labs: Lab Results 11/19/25 11/19/25 Range/Units 14:43 14:44 Urine HCG, Qual Negative (NEGATIVE) POC Glucose 101 (74-106) mg/dL Discharge Plan Discharge Chief Complaint: Nausea/Vomiting/Diarrhea Clinical Impression: Vomiting Patient Disposition: Home, Self-Care Time of Disposition Decision: 15:14 Condition: Good Mode of Transportation: Private Vehicle Prescriptions / Home Meds: New ondansetron 4 mg tablet,disintegrating 4 mg PO Q8H PRN (Reason: nausea and vomiting) 5 Days Qty: 10 0RF No Action multivitamin [Daily Multi-Vitamin] Tablet 1 tab PO DAILY Print Language: Turkmen Instructions: Acute Nausea and Vomiting (ED) Referrals: MOIZ DIAZ [Primary Care Provider, Family Practice] - 1 week Discharge Date/Time: 11/19/25 15:20
== END 2025-11-19 15:20 | disposition home or self-care (01) ==
PROVIDERS: Emergency Provider Student in an Organized Health Care Education/Training Program; PCP Family Medicine
DX: R11.2 Nausea with vomiting, unspecified (principal)
CPT/HCPCS: 36415; 84703; 99283; Q0162